=== PATIENT | female | born 1945 | race Caucasian/White ===

== ENCOUNTER 2017-01-10 06:30 | Day surgery (SDC) | payer MEDICARE, OTHER ==
[~2017-01-10] VITALS: Ht 172.7 cm; Wt 83.9 kg
[~2017-01-10 06:30] MED LIST: AZITHROMYCIN500 MG PO; CO Q-10100 MG PO; FISH OIL500 MG PO; FOLBIC TABLET1 EACH PO; GABAPENTIN300 MG PO; HYDROCODON-ACE1 EAC8 PO; KEFLEX500 MG PO; MAGNESIUM OXID400 MG PO; MILK THISTLE500 MG PO; NICODERM CQ1 EAC2 TD; NORCO 5-325 TA1 EACH PO; NTS1 EACH TD; OMEPRAZOLE20 MG PO; OMEPRAZOLE40 MG PO; PERCOCET 7.5-31 EACH PO; PREDNISONE20 MG PO; SUCRALFATE1 GM PO; TUMS ULTRA400 MG PO; VENTOLIN HFA18 GM INH; VITAMIN A10000 UNIT PO; VITAMIN A8000 UNIT PO; VITAMIN B122500 MCG PO; VITAMIN C500 M1 PO; VITAMIN D1000 UNIT PO; VITAMIN D400 UNIT PO; VITAMIN D5000 UNIT PO; ZITHROMAX250 MG PO
--- NOTE | 2017-01-15 01:42 | OR ---
[facility] [address], [place] [address] Signed PREOPERATIVE DIAGNOSES: 1. Lower abdominal pain. 2. History of ovarian carcinoma status post resection and chemotherapy. POSTOPERATIVE DIAGNOSES: 1. Sigmoid diverticulosis. 2. No evidence of neoplasm. PROCEDURE: Total colonoscopy. SURGEON: Amberly Issa MD. ANESTHESIA: Intravenous sedation, fentanyl 100 mcg, Versed at 5 mg. INDICATION: This 70-year-old white woman is a patient of Dr. Yoni Holley and well known to me from the past. Over the past 20 years, I have performed mastectomy twice for breast cancer and about 3 years ago abdominal hysterectomy and tumor debulking for ovarian carcinoma. She has undergone chemotherapy, which she tolerated well and currently has no evidence of disease. She is having lower abdominal pain recently, but no blood per rectum per se. She is admitted to undergo colonoscopy understanding the risks of bleeding, infection, and perforation. FINDINGS: The prep was good. She had diverticula of the sigmoid and left colon. There is no sign of polyps, cancer, stricture or other particular problem. PROCEDURE IN DETAIL: The patient was brought to the endoscopy suite, and placed in lateral decubitus position. Given intravenous sedation to the point of slurred speech and nystagmus. Digital rectal examination was normal. An Olympus video colon oscope was passed in the rectum and manipulated throughout the colon. She had diverticula of the sigmoid and left colon. The scope was advanced more fully and with abdominal wall stabilization, passage of the scope into the right colon could be ascertaine d . Actual intubation of the cecum was not forthcoming though visualization was noted to be normal. The scope was withdrawn from that point. Upon withdrawal of the scope. No other abnormality was noted except the diverticula seen in the left and sigmoid col on. The rectum was normal as well. The scope was removed and the patient was taken to recovery room in good condition. CONCLUDING DIAGNOSIS: Diverticular changes of the colon. Electronically Signed By: AMBERLY ISSA MD 01/15/17 0142 PATIENT NAME: TRISTON ALMONTE OPERATIVE REPORT DATE OF : 41 PHYSICIAN: AMBERLY ISSA MD REPORT #: [id number] REPORT IS CONFIDENTIAL AND NOT TO BE RELEASED WITHOUT AUTHORIZATION [facility] [address], [place] [address] Signed PLAN: Recommend high-fiber diet. She was noted on recent CT scan to have no evidence of ovarian cancer recurrence, but did have incisional hernia for which repair would be recommended. She will call us to help organize the scheduling for that. MD SARKIS Nelson/Carlos A /[id number] cc: MD Yoni Dickens Electronically Signed By: AMBERLY ISSA MD 01/15/17 0142 PATIENT NAME: TRISTON ALMONTE OPERATIVE REPORT DATE OF : 41 PHYSICIAN: AMBERLY ISSA MD REPORT #: [id number] REPORT IS CONFIDENTIAL AND NOT TO BE RELEASED WITHOUT AUTHORIZATION
== END 2017-01-10 08:45 | disposition home or self-care (01) ==
LOC: OPS 06:30 → DS 06:30 → OPS 06:45
PROVIDERS: Surgery
PROC: 0DJD8ZZ Inspection of Lower Intestinal Tract, Via Natural or Artificial Opening Endoscopic (ICD-10-PCS; principal; 2017-01-10 06:45)
DX: K57.30 Diverticulosis of large intestine without perforation or abscess without bleeding (principal); F17.210 Nicotine dependence, cigarettes, uncomplicated; Z85.43 Personal history of malignant neoplasm of ovary; Z85.3 Personal history of malignant neoplasm of breast; Z90.13 Acquired absence of bilateral breasts and nipples; Z90.710 Acquired absence of both cervix and uterus; Z90.49 Acquired absence of other specified parts of digestive tract; Z90.722 Acquired absence of ovaries, bilateral; Z98.890 Other specified postprocedural states
CPT/HCPCS: 99152; 99153; J2250; J3010; J7120

== ENCOUNTER 2017-05-26 18:15 | Emergency (ER) | payer MEDICARE, OTHER ==
[~2017-05-26] VITALS: Ht 172.7 cm; Wt 86.2 kg
[2017-05-26] MEDS ORDERED: MAGNESIUM CITR100 MG (18:32)
[2017-05-26] MEDS ORDERED: CEPHALEXIN500 MG PO (20:05)
--- NOTE | 2017-05-26 22:37 | EKG ---
[facility] [address] [facility] [place] [address] Signed Normal sinus rhythm Septal infarct , age undetermined Possible Lateral infarct , age undetermined Abnormal ECG No previous ECGs available Confirmed by YING SWENSON MD ([id number]) on 05/26/2017 10:37:00 PM Electronically Signed By: YING SWENSON MD 05/26/17 2237 PATIENT NAME: SUZYTRISTON VILLA Electrocardiogram DATE OF : 41 PHYSICIAN: YING SWENSON MD REPORT #: [id number] REPORT IS CONFIDENTIAL AND NOT TO BE RELEASED WITHOUT AUTHORIZATION
== END 2017-05-26 21:24 | disposition home or self-care (01) ==
LOC: ED 18:15
DX: R60.0 Localized edema (principal); N39.0 Urinary tract infection, site not specified; Z85.3 Personal history of malignant neoplasm of breast; Z85.038 Personal history of other malignant neoplasm of large intestine; Z85.43 Personal history of malignant neoplasm of ovary; K21.9 Gastro-esophageal reflux disease without esophagitis; Z90.10 Acquired absence of unspecified breast and nipple; Z90.710 Acquired absence of both cervix and uterus; Z87.891 Personal history of nicotine dependence; Z79.899 Other long term (current) drug therapy
CPT/HCPCS: 71010; 80053; 81001; 83880; 84484; 85025; 87088; 93005; 93010; 96374; 99284

== ENCOUNTER 2017-11-13 05:40 | Day surgery (SDC) | payer MEDICARE, OTHER ==
[~2017-11-13] VITALS: Ht 172.7 cm; Wt 90.7 kg
[~2017-11-13 05:40] MED LIST changes: +CARBIDOPA-LEVO1 EACH PO; +CEPHALEXIN500 MG PO; +CRANBERRY TABL1 EACH PO; +MAGNESIUM CITR100 MG; +MAGNESIUM250 MG PO
--- NOTE | 2017-11-13 07:17 | NUR ---
UP TO BR AND BACK TO BED. WARM BLANKET ON. IV PATENT.
--- NOTE | 2017-11-13 10:10 | NUR ---
11/13/17 1010 Dyana Tubbs 0972 PT ARRIVED REACTIVE, RESP EVEN AND UNLABORED. PT ABLE TO COUGH AND CLEAR SECRETION. 1000 O2 REMOVED, O2 SAT 100%. PT DROWSY AND TALKING. PT REORINETED TO PACU. VSS. 1005 O2 SAT DECREASED, PT ENCOURAGED TO DEEP BREATH, 2L NC PLACED ON PT. O2 INCREASED TO 98%.
[2017-11-13] MEDS ORDERED: IBUPROFEN600 MG PO (10:13)
[2017-11-13] MEDS ORDERED: OXYCODON-ACETA1 EAC2 PO (10:14)
[2017-11-13] MEDS ORDERED: MAPAP325 MG PO (10:14)
--- NOTE | 2017-11-13 10:53 | NUR ---
[id number]: PT ARRIVES TO DS RM 5 FROM RECOVERY. PT ALERT AND AWAKE ON ARRIVAL. PT HAS SOME "DISCOMFORT" IN ABD AREA. PT DENIES ANY NAUSEA. WARM BLANKET AND WATER PROVIDED ON ARRIVAL. PT REQUESTS COFFEE. PT BUSY USING TELEPHONE IN ROOM TO CALL SPOUSE. NO FURTHER C/O'S AT THIS TIME.
[2017-11-13] MEDS ORDERED: PERCOCET 7.5-31 EACH PO (11:28)
--- NOTE | 2017-11-13 11:49 | NUR ---
PT SITTING UPRIGHT IN BED WATCHING TV. RR EVEN AND UNLABORED. PT STATES SHE "FEELS COMFORTABLE" AND DOES NOT HAVE PAIN. PT TOLERATES PO WELL. NO C/O'S AT THIS TIME. CALL LIGHT AT PT LEFT SIDE.
--- NOTE | 2017-11-13 12:48 | NUR ---
PT SIGNIFICANT OTHER AT BEDSIDE. PT DENIES PAIN OR NAUSEA AT THIS TIME. PT PROVIDED ICED WATER AND REQUESTS FRUIT. CALL LIGHT REMAINS AT PT SIDE.
--- NOTE | 2017-11-13 13:45 | NUR ---
PT TOLERATES FRUIT WELL. PT PROVIDED WARM BLANKET AND MORE ICED WATER. S.O. SITTING AT BEDSIDE. CALL LIGHT REMAINS AT SIDE, NO C/O'S AT THIS TIME.
--- NOTE | 2017-11-13 14:42 | NUR ---
[id number]: PT UP TO BR WITH RN ASSIST. PT AMBULATES WELL AND VOIDS 500 MLS YELLOW URINE.
--- NOTE | 2017-11-13 15:27 | NUR ---
LE 1505: PT READY TO DC HOME, NOTED 10[address]ISSED[address] SPOKE WITH DR. ISSA, CHANGE TO ANCEF 2 GM IM TO BE GIVEN NOW. RHEA IN PHARMACY NOTIFIED. WILL CHANGE ORDER.
--- NOTE | 2017-11-13 16:34 | NUR ---
[id number]: DC CRITERIA MET. PT IMPLANTED PORT HEPARINIZED AND DEACCESSED. DC INSTRUCTIONS GIVEN IN PRESENCE OF PT AND SIG OTHER. ALL QUESTIONS ANSWERED AND PT VERBALIZES UNDERSTANDING OF DC INSTRUCTIONS. PAIN MED SCRIPT GIVEN TO PT. [id number]: [facility] NOTIFIED THREE DIFFERENT TIMES REGARDING IM INJECTION. PT WAITED IN DS FOR APPROX 1 HOUR FOR ABX. PT MARTELL EMPTIED OF 20 MLS RED BLOOD WHILE WAITING. DR. ISSA GAVE VERBAL ORDER TO CANCEL IM INJECTION DUE TO PT WAITING SO LONG. PT DC'S VIA WC WITH [employer] AND JEYSON GÓMEZ.
--- NOTE | 2017-11-13 16:41 | NUR ---
PT TO DC AT 1505 UNTIL MISSED MEDICATION WAS REALIZED. PT WAITED UNTIL 1600 ON IM ANCEF.
--- NOTE | 2017-11-13 17:52 | OR ---
[facility] [address], [place] [address] Signed DATE OF OPERATION: 11/13/2017 SURGEON: Amberly Issa MD PREOPERATIVE DIAGNOSES: 1. Incisional hernia in the region of umbilicus. 2. Obesity. 3. History of smoking (quit three months ago). 4. History of stage IV ovarian carcinoma with successful debulking and chemotherapy. 5. History of breast cancer. 6. History of left lung cancer. POSTOPERATIVE DIAGNOSES: 1. Incisional hernia, 7 cm defect. 2. 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 PROCEDURES PERFORMED: 1. Incisional hernia repair with implantation of Prolene mesh underlay technique. 2. Excision/biopsy of peritoneal nodules. 3. Lysis of small bowel adhesion. ANESTHESIA: General endotracheal and local 20 mL of 0.25% Marcaine with epinephrine. ANESTHESIOLOGIST: Olga Lidia Villafuerte CRNA. INDICATION: This 72-year-old white woman is a patient Dr. Maile Holley, well-known to me from the past. A number of years ago she had breast cancer. Subsequently, recurrent new breast cancer in the past few years, ovarian carcinoma requiring hysterectomy and debulking and omentectomy. Subsequent chemotherapy was administered. She was also noted to have a lung neoplasm, which was treated primarily with radiation therapy. She has remained in a disease-free state since that time. She has developed an incisional hernia in the region of the umbilicus in part related to her obesity and long-standing smoking history as well as probably impaired wound healing related to chemotherapy after her ovarian surgery operation. The hernia is uncomfortable for her and is located just cephalad to the umbilicus itself. She shows no sign of ascites or other particular problems. She has quit smoking now for three months, which is a remarkable feat in and out of itself. She was admitted at this time to undergo hernia repair. Understands the Electronically Signed By: AMBERLY ISSA MD 11/13/17 1752 PATIENT NAME: TRISTON ALMONTE OPERATIVE REPORT DATE OF : 41 REPORT #: [id number] PHYSICIAN: AMBERLY ISSA MD PCP: MAILE HOLLEY MD REPORT IS CONFIDENTIAL AND NOT TO BE RELEASED WITHOUT AUTHORIZATION [facility] [address], [place] [address] Signed risks of bleeding, infection, and recurrence. Notably, she remains obese at 200 pounds or so. FINDINGS: The fascial defect was 7 cm in length. The hernia sac was firm and rubbery. The properitoneal space was developed and the hernia sac was removed and additional nodules associated with remnants of hernia sac were excised as peritoneal biopsies as there appears to be possible persistence or recurrence of ovarian cancer, though that is not certain. There were interloop adhesions to some degree, none of them appearing to be malignant and these were taken down as well. By conclusion, the properitoneal space was well-developed and the peritoneum reapproximated allowing for implantation of Prolene mesh covering the fascial defect with a minimum of 4 cm on each edge. Prolene pledgets were used to additionally secure the sutures. Midline fascia cannot be brought fully together, it is noted. A drain was placed as well. DESCRIPTION OF PROCEDURE: The patient was brought to the operating room, given a general endotracheal anesthetic. Preoperative antibiotic Ancef was given. Sequential compression device stockings were used and heparin subcutaneously administered. The abdomen was prepared with chlorhexidine solution and draped sterilely. An incision was made in the previous midline incision cephalad to the umbilicus and taken that inferiorly just below the umbilicus. Dissection was carried through subcutaneous tissue using blunt and electrocautery dissection. Very obvious hernia sac was dissected free from the surrounding soft tissue including the overlying dermis of the umbilicus. The hernia sac was quite thickened, astorga, and somewhat rubbery in its consistency. It was freed from surrounding soft tissue with blunt dissection defining well the fascial edge. A plane was developed between the fascia and the hernia sac itself using electrocautery and blunt dissection. This was done circumferentially around the defect, which measured 7 cm in length and about 5 cm in width. Ultimately, the firmness and rubberiness of the hernia sac and some slightly nodular changes were noted and therefore, the hernia sac was opened and further inspection undertaken. There was no sign of ascites or carcinomatosis. Proper however, rubbery nodules were noted of the hernia sac and peritoneum. These were excised and passed as specimen for possible peritoneal tumor. There were interloop adhesions and these were taken down with sharp dissection freeing them entirely. The remnant of the hernia sac was further from the overlying fascia allowing for reapproximation with running #2-0 Vicryl suture. Thus, the peritoneum was secured over the intraabdominal viscera. A 6 x 6 inch piece of Prolene mesh was cut to an elliptical configuration. The center line marked with a marking pen. Implantation of Prolene mesh in the properitoneal space was undertaken with interrupted #0 Prolene sutures with Prolene mesh pledgets. Multiple such sutures were placed. Overlap of the fascial margin was at least 4 cm circumferentially. Multiple stitches Electronically Signed By: AMBERLY ISSA MD 11/13/17 1759 PATIENT NAME: TRISTON ALMONTE OPERATIVE REPORT DATE OF : 41 REPORT #: [id number] PHYSICIAN: AMBERLY ISSA MD PCP: MAILE HOLLEY MD REPORT IS CONFIDENTIAL AND NOT TO BE RELEASED WITHOUT AUTHORIZATION [address] [place] [address] Signed were placed in the edge as well to more fully secure the mesh. Through a separate stab incision, a 7 mm flat Hans drain was placed in the base of the wound. Shaina's layer was reapproximated with interrupted #2-0 Vicryl. The skin was closed with running subcuticular #3-0 Vicryl. Steri-Strips were applied as was as Mepilex silver sponge dressing and an OpSite. The patient was ultimately extubated and transferred to recovery room in good condition with an abdominal binder in place. Blood loss was estimated at 50 mL in total. Sponge, needle, and instruments counts were reported as correct x3. MD SARKIS Nelson/CLAIREL /[id number] cc: MD [place] MD Copies: MAILE HOLLEY MD, ROBERT C MD ~ Electronically Signed By: AMBERLY ISSA MD 11/13/17 1752 PATIENT NAME: TRISTON ALMONTE OPERATIVE REPORT DATE OF : 41 REPORT #: [id number] PHYSICIAN: AMBERLY ISSA MD PCP: MAILE HOLLEY MD REPORT IS CONFIDENTIAL AND NOT TO BE RELEASED WITHOUT AUTHORIZATION
== END 2017-11-13 16:00 | disposition home or self-care (01) ==
LOC: DS 05:40
PROVIDERS: Surgery
PROC: 0WUF0JZ Supplement Abdominal Wall with Synthetic Substitute, Open Approach (ICD-10-PCS; 2017-11-13)
PROC: 0WUF0JZ Supplement Abdominal Wall with Synthetic Substitute, Open Approach (ICD-10-PCS; principal; 2017-11-13 06:45)
DX: K43.2 Incisional hernia without obstruction or gangrene (principal); E66.9 Obesity, unspecified; K66.0 Peritoneal adhesions (postprocedural) (postinfection); F17.210 Nicotine dependence, cigarettes, uncomplicated; K59.09 Other constipation; Z79.899 Other long term (current) drug therapy; Z98.890 Other specified postprocedural states; Z68.28 Body mass index [BMI] 28.0-28.9, adult; Z85.43 Personal history of malignant neoplasm of ovary; Z85.118 Personal history of other malignant neoplasm of bronchus and lung; Z85.3 Personal history of malignant neoplasm of breast
CPT/HCPCS: 00830; 88302; 88305; 88341; 88342; C1781; J0131; J0690; J0735; J1100; J1644; J1885; J2250; J2405; J2704; J3475; J7120

== ENCOUNTER 2020-01-11 11:23 | Inpatient (IN) | payer MEDICARE, OTHER ==
[~2020-01-11] VITALS: Ht 172.7 cm; Wt 90.3 kg
[~2020-01-11 11:23] MED LIST changes: +B COMPLEX1 EACH PO; +IBUPROFEN600 MG PO; +MAPAP325 MG PO; +OXYCODON-ACETA1 EAC2 PO; -VITAMIN B122500 MCG PO
--- OUTSIDE RECORDS SUMMARY | 2020-01-11 11:26 | XMS ---
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 Dick has no Care Guidelines for this patient. Arlene VISIT COUNT (12 MO.) 1 MARTHA Velarde TOTAL 1 NOTE: Visits indicate total known visits. ED/UCC VISIT TRACKING (12 MO.) 01/11/2020 11:23 MARTHA Don OR TYPE: Emergency COMPLAINT: - [facility] INPATIENT VISIT TRACKING (12 MO.) No inpatient visits to display in this time frame [email or web address]
[2020-01-11] MEDS ORDERED: FLUOXETINE HCL20 MG PO (16:07)
--- NOTE | 2020-01-11 16:19 | NUR ---
Dilaudid 0.5mg ivp admin for reports of 8/10 left hip pain.
--- NOTE | 2020-01-11 16:30 | NUR ---
New admit to the floor. Pt arrived to unit a&ox4, respirations even and non labored. Vital signs stable, afebrile. No notable bruising to left hip. CMS intact to left lower leg. Oriented pt to room and call light. Bed alarm intact. Pt has no needs at this time.
--- NOTE | 2020-01-11 16:30 | NUR ---
Pt arrived to unit with harris in place.
--- NOTE | 2020-01-11 17:19 | NUR ---
NOTIFIED OF CONSULT ORDER BY AT THIS TIME.
--- NOTE | 2020-01-11 17:49 | NUR ---
MED REC COMPLETE
--- NOTE | 2020-01-11 17:52 | NUR ---
Dilaudid 1mg IVP admin for reports of 9/10 left hip pain.
--- NOTE | 2020-01-11 19:13 | NUR ---
RECEIVED REPORT FROM NBA BENÍTEZ. pt RESTING IN BED. CABAN DRAINING CONCENTRATED YELLOW URINE. IVF INFUSING. pt REPORTED THAT PAIN IS "OKAY" AT THIS TIME. WHITEBOARD UPDATED. CALL LIGHT IN HAND.
--- NOTE | 2020-01-11 22:00 | NUR ---
ASSESSMENT DONE. pt REPORTED PAIN, PRN GIVEN WITH SCHEDULED MED (SEE MAR). I&O AND VITALS RECORDED. NO FURTHER REQUESTS AT THIS TIME. CALL LIGHT WITHIN REACH.
--- NOTE | 2020-01-11 23:48 | NUR ---
ROUNDED ON pt. RESTING WITH EYES CLOSED, WOKE TO NOISE. NO REQUESTS AT THIS TIME. CALL LIGHT WITHIN REACH.
--- NOTE | 2020-01-12 02:05 | NUR ---
WOKE pt FOR ASSESSMENT AND VITALS. I&O RECORDED. pt REPORTED HAVING A DRY MOUTH, SWABS PROVIDED. PAIN 2/10 AT REST. NO CHANGES IN ASSESSMENT. NEW BAG OF IVF HUNG. CALL LIGHT WITHIN REACH.
--- NOTE | 2020-01-12 03:33 | NUR ---
CALL LIGHT ON. pt REQUESTED PRN PAIN MEDS FOR 8/10 PAIN. REPORTED THAT SHE WOULD LIKE ANOTHER LEVODOPA/CARBIDOPA FOR HER RESTLESS LEGS THE TWITCHING WAS CAUSING SEVERE PAIN IN HER LEFT LEG. BOTH GIVEN (SEE MAR). NO FURTHER REQUESTS AT THIS TIME. CALL LIGHT WITHIN REACH.
--- NOTE | 2020-01-12 06:38 | NUR ---
VITALS AND I&O RECORDED. pt WIPED DOWN FOR SURGERY. PRN PAIN MED GIVEN FOR 6/10 PAIN. NO FURTHER REQUESTS AT THIS TIME. CALL LIGHT IN HAND.
--- NOTE | 2020-01-12 07:42 | NUR ---
pt RESTED ON AND OFF DURING SHIFT. PAIN CONTROLLED WITH PRN IV MEDS X3. CABAN CONCENTRATED, AMPHIBIOUS OPERATIONS OFFICER AT END OF SHIFT. IVF INFUSING. DESAT WITH SLEEP, ON 2L O2 WHILE SLEEPING. WOULD LIKE HER DENTURES IN PRIOR TO SEEING SIGNIFICANT OTHER. USES CALL LIGHT APPROPRIATELY.
--- NOTE | 2020-01-12 09:32 | NUR ---
PATIENT GONE IN OR. WILL CHECK BACK LATER.
--- NOTE | 2020-01-12 11:45 | NUR ---
pt arrived back from surgery at this time. pt had a duramorph spinal. pt states that she has no pain. pt arrives to unit on 2l nc with an O2 sat of 97%. pt slightly drowsy but arousable at this time. pt has no complaints or concerns at this time.
--- NOTE | 2020-01-12 11:58 | NUR ---
01/12/20 1158 Diann Jimenez 1043 PT ARRIVED IN PACU AWAKE WITH OPA IN PLACE. 1045 OPA REMOVED. 1100 PELVIS XRAY DONE. CRYO CUFF PLACED ON L HIP PER DR ORDERS. 1105 OXYGEN REMOVED. SATS DROPPED TO 88% ON RA WITH COUGH, DEEP BREATHING. O2 AT 4L VIA NC PLACED. 1120 BILAT OZIEL HOES PLACED ON PT. OXYGEN DECREASED TO 2L WITH SATS 97%. 1145 TO ROOM 113. BED PLUGGED IN AND REPORT GIVEN TO RN.
--- NOTE | 2020-01-12 12:38 | NUR ---
PT DID ARRIVE FROM SURGERY WITH SHRUTI IN PLACE, CLEAN/DRY/INTACT. PT ALSO HAS A CYRO IS PLACE. SCDS PLACED AND CPOX IN PLACE WELL
--- NOTE | 2020-01-12 12:45 | NUR ---
IN PTS ROOM TO GIVE TXA. PT APPEARS TO BE RESTING COMFORTABLY IN BED. PT IS REGAINING FEELING IN HER LEGS AT THIS TIME AFTER HAVING A DURAMORPH SPINAL. PT ABLE TO WIGGLE TOES. PT REPORTS NO PAIN AT THIS TIME AND HAS NO OTHER CONCERNS CURRENTLY
--- NOTE | 2020-01-12 13:36 | NUR ---
WENT TO CHECK ON PT-TAKEN TO OR FOR SURGERY. WILL FOLLOW UPON RETURN
--- NOTE | 2020-01-12 14:05 | NUR ---
IN PTS ROOM TO DO THIRD POST-OP CHECK. PT RESTING SOUNDLY WITH RESPIRATIONS NOTED AND CPOX IN PLACE. VITALS WNL AT THIS TIME
--- NOTE | 2020-01-12 17:45 | NUR ---
THIS RN ATTEMPTED TWICE ON THE PTS RIGHT ARM FOR A NEW IV. THIS RN MISSED ON BOTH ATTEMPTS. SALAZAR RN AWARE
--- NOTE | 2020-01-12 19:20 | NUR ---
IN ROOM FOR REPORT, PT IS AWAKE IN BED. SHE DENIES NEEDS AT THIS TIME. FRESH ICE IS IN CRYO. CALL LIGHT IS CLOSE.
--- NOTE | 2020-01-12 21:12 | EKG ---
[facility] [address] [facility] [place], [place] [address] Signed Normal sinus rhythm with sinus arrhythmia Left axis deviation Abnormal ECG When compared with ECG of 11-NOV-2017 09:46, QRS axis shifted left Confirmed by RHEA BOTELLO DO ([id number]) on 01/12/2020 9:12:33 PM Electronically Signed By: RHEA BOTELLO DO 01/12/202111 PATIENT NAME: TRISTON ALMONTE Electrocardiogram DATE OF : 41 PHYSICIAN: RHEA BOTELLO DO REPORT #: [id number] REPORT IS CONFIDENTIAL AND NOT TO BE RELEASED WITHOUT AUTHORIZATION
--- NOTE | 2020-01-12 21:30 | NUR ---
IN ROOM TO ADMINISTER MEDICATIONS AND ASSESS PT. TOOK O2 DOWN TO 1 LNC AND PT DROPED TO 91% THEN PUT PT ON RA AND SHE DROPPED TO 88%. REPLACED O2 AT 2LNC. SHE DENIES SOB BUT HAS A PRODUCTIVE COUGH. DISCUSSED COUGHING AND DEEP BREATHING. SHRUTI IS CDI AND PT DENIES PAIN AT THIS TIME. CALL LIGHT IS CLOSE AND PT DENIES FURTHER NEEDS.
--- NOTE | 2020-01-12 23:00 | NUR ---
IN ROOM TO ADMINISTER IV ABX. PT DENIES FURTHER NEEDS AT THIS TIME. CALL LIGHT IS CLOSE.
--- NOTE | 2020-01-12 23:02 | NUR ---
VITALS AND I&OS DONE AND CHARTED. FILLED CRYO WITH FRESH ICE. FRESH ICE WATER GIVEN. BEDSIDE TABLE AND CALL LIGHT IN REACH. PT NEEDS NOTHING MORE AT THIS TIME.
--- NOTE | 2020-01-12 23:59 | NUR ---
PT IS AWAKE IN BED WATCHING TV, SHE DENIES NEEDS AT THIS TIME. CALL LIGHT IS CLOSE.
--- NOTE | 2020-01-13 01:30 | NUR ---
PT IS RESTING WITH EYES CLOSED, RR IS EVEN AND NONLABORED. CALL LIGHT IS CLOSE.
--- NOTE | 2020-01-13 02:27 | NUR ---
ADMINISTERED SCHEDULED TORADOL. VS & I&O'S TAKEN AND ENTERED. PT DENIES PAIN WHILE STILL AND REPORTS AN INCREASE TO 2/10 IF SHE MOVES LEFT LEG. PT HAS ACTIVE BT BUT IS NOT PASSING GAS YET. 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 SHRUTI IS CDI. WAS ABLE TO DECREASE PT'S O2 TO 1LNC. PT DENIES NEEDS AT THIS TIME, CRYOCUFF, SCDS AND AES ARE ON. CALL LIGHT IS CLOSE.
--- NOTE | 2020-01-13 03:15 | NUR ---
PT IS RESTING WITH EYES CLOSED, RR IS EVEN AND NONLABORED. CALL LIGHT IS CLOSE.
--- NOTE | 2020-01-13 06:26 | NUR ---
ADMINISTERED MORNING MEDS. ATTEMPTED TO START AN IV WITHOUT SUCESS. PT DENIES PAIN AT THIS TIME. CALL LIGHT IS CLOSE.
--- NOTE | 2020-01-13 07:28 | OR ---
[facility] [address] [place], [place] [address] Signed DATE OF OPERATION: 01/12/2020 SURGEON: Pita Holder MD PREOPERATIVE DIAGNOSIS: Left intertrochanteric hip fracture. POSTOPERATIVE DIAGNOSIS: Left intertrochanteric hip fracture. PROCEDURE PERFORMED: Open reduction and internal fixation of left hip. AUTOMOTIVE SALES SPECIALIST: DOUGLAS Duffy. ANESTHESIA: Spinal. BLOOD LOSS: 200 mL. IMPLANTS: Four-hole Synthes DHS 130-degree with 110 lag screw and four 4.5 screws. BRIEF HISTORY: Franko is a 74-year-old female, who suffered a ground level fall yesterday fracturing her hip. She was admitted to my service and cleared by the Medicine Service to proceed with surgery today. Risks and benefits of operative treatment were discussed with her and she elected to proceed. DESCRIPTION OF PROCEDURE: Once consent was obtained, she was taken to the operating room after adequate anesthesia. She was placed on operating room table and the right leg was flexed, abducted, and externally rotated. The left leg was placed in foot traction on the traction bed and Leadbetter was maneuver was performed. The leg was then prepped and draped in a standard sterile fashion. C-arm was brought in and reduction was found to be adequate. The standard lateral approach through a 6 inch incision was taken through skin and subcutaneous tissue. The IT band was split longitudinally. The vastus lateralis was then split and elevated off the lateral femur. The reduction was improved Electronically Signed By: PITA HOLDER MD 01/13/20 0728 PATIENT NAME: FRANKO ALMONTE OPERATIVE REPORT DATE OF : 41 REPORT #: [id number] PHYSICIAN: PITA HOLDER MD PCP: MAILE KAMARA MD REPORT IS CONFIDENTIAL AND NOT TO BE RELEASED WITHOUT AUTHORIZATION [facility] [address] [place], [place] [address] Signed by using a bone hook medially. We then placed the guidewire from the lateral femur across the femoral neck into the femoral head in a center-center position. The guidewire was measured to 110. A 105 screw was selected and the triple reamer was used to ream over the guidewire and then, the 105 mm lag screw was placed to its full depth. The four-hole DHS was then placed over this and impacted until it was well seated on the lateral femur. The four screws in the plate were then placed and checked using image intensifier. The compression screw was then placed and the wound was copiously irrigated with antibiotic solution. The fascia was closed in layers using #0 Stratafix, #1 Stratafix for the subcutaneous tissue and anne marie for the skin. A SHRUTI wound VAC dressing was placed and she was awakened and taken to the recovery room in satisfactory condition. All sponge, needle, and instrument counts were correct. Pita Holder MD BA/PHILLIP /[id number] Copies: ~ Electronically Signed By: PITA HOLDER MD 01/13/20 0728 PATIENT NAME: FRANKO ALMONTE OPERATIVE REPORT DATE OF : 41 REPORT #: [id number] PHYSICIAN: PITA HOLDER MD PCP: MAILE KAMARA MD REPORT IS CONFIDENTIAL AND NOT TO BE RELEASED WITHOUT AUTHORIZATION
--- NOTE | 2020-01-13 07:48 | NUR ---
0713: Report received from Christal BENÍTEZ. Pt resting in her bed and she denies any pain or other problems or needs at this time. Call suarez within reach.
--- NOTE | 2020-01-13 08:16 | NUR ---
PT SITTING ON THE BEDPAN ATTEMPTING TO HAVE A BM AT THIS TIME. SCD'S, OZIEL, CRYO CUFF, SHRUTI ALL ON AND WORKING WELL. DRESSING CDI. PT DENIES ANY PAIN AND IS HAVING HER BK AND SPEAKING WITH HER VISITOR AND NOW WORKING WITH OT. SEE ASSESSMENT.
--- NOTE | 2020-01-13 09:26 | NUR ---
OT, SOCO, ASKED IF I COULD CHAT WITH PATIENT ABOUT HIGH FIBER FOODS WHILE SHE IS HERE SINCE SHE EATS HIGHER FIBER FOODS AT HIME TO PREVENT CONSTIPATION. STOPPED IN HER ROOM, HER IS VISITING. PATIENT ORDERED WHEAT TOAST AND 2 ORANGE SLICES FOR BREAKFAST AND ONLY AT 1/2 OF A SLICE OF TOAST AND NO ORANGES. STATES SHE DOESN'T HAVE AN APPETITE. SHE DID DRINK ALL OF HER COFFEE. I MENTIONED THAT SHE CAN ORDER HER OWN FOOD AND MENTIONED FOODS ON OUR MENU THAT PROVIDE A GOOD SOURCE OF FIBER SUCH RAISIN BRAN, PRUNES, STEAMED BROCCOLI, PEAS, OATMEAL, WHOLE WHEAT BREAD AND FRESH FRUIT. SHE PREFERS FIGS AT HOME, SO SHE DOESN'T SOUND LIKE SHE WILL ORDER PRUNES. SHE MAY ORDER RAISIN BRAN FOR BREAKFAST BUT NEEDS TO HAVE SOME PROTEIN WITH IT. I MENTIONED SHE CAN HAVE AN EGG OR COTTAGE CHEESE OR SAUSAGE GALINA. PATIENT UNDERSTANDS. SHE HAS NO MORE QUESTIONS. CONTINUE REGULAR DIET. WILL REMAIN AVAILABLE IF NEEDED.
--- NOTE | 2020-01-13 10:28 | NUR ---
Dr Holder called and notified of the pt's urine output and her vital signs. He states he would like to pt to increase her PO fluid intake which she has already been instructed to do. Dr Holder states he is ok with her urine output if her BP remains stable which it is at this time.
--- NOTE | 2020-01-13 10:30 | NUR ---
SPOKE WITH PATIENT AND SIG OTHER IN ROOM. THEY LIVE TOGETHER IN HOME WITH 5 STEPS/RAIL. SHE HAS A CANE. SHE UNDERSTANDS SHE WILL NEED A FWW. SHE IS OK WITH GETTING ONE THROUGH HER INSURANCE. SHE WAS PLANNING ON GETTING ONE WITH A SEAT AT [facility] BUT I EXPLAINED THAT DR JEFFRIES USUALLY DOES NOT WANT THEM TO USE THAT KIND AFTER SURGERY. THEY HAVE A WALK-IN SHOWER WITH [employer] TO USE AND IT HAS A HAND HELD SHOWER HEAD. THEY HAVE A TALL TOILET AND WE DISCUSSED THEY STILL MAY WANT TO CHECK AT [facility] FOR A TOILET RISER AND GRAB BARS. PATIENT IS NORMALLY VERY ACTIVE AND FEELS SHE WILL DO WELL WITH THERAPY. THEY FEEL SHE CAN PROBABLY DO THERAPY AT [facility]. THEY HAVE PETS, DISCUSSED FOR HER TO BE CAREFUL TO NOT TRIP ON PETS OR HAVE THROW RUGS ABOUT. QUESTIONS ANSWERED. CASE MANAGEMENT WILL CONTINUE TO FOLLOW.
--- NOTE | 2020-01-13 10:30 | NUR ---
Pt resting in her bed and she continues to deny any pain.
--- NOTE | 2020-01-13 11:05 | NUR ---
SAT NOW 100%, O2 TURNED OFF. PULSE OX REMAINS IN PLACE.
--- NOTE | 2020-01-13 12:14 | PATH ---
[facility] [address] [facility] [place], [place] [address] Signed ORDERING PHYSICIAN: Easton Holder MD PATIENT NAME: TRISTON ALMONTE GENDER: Renée : 1945 SPECIMEN(S): No Source Given MOLECULAR PATHOLOGY RESULTS: SARS-CoV-2 Not Detected ADDITIONAL NOTES.: The [place] Fusion SARS-CoV-2 Assay is a multiplex real-time PCR (RT-PCR) in vitro diagnostic test intended for the qualitative detection of RNA from SARS-CoV-2 from individuals who meet COVID-19 clinical and/or epidemiological criteria. In general, SARS-CoV-2 RNA can be detected during the acute phase of infection. Positive results indicate the presence of SARS-CoV-2 RNA. Clinical correlation with patient history and other diagnostic information is necessary to determine patient infection status. Positive results do not rule out bacterial infection or co-infection with other viruses. Negative results do not preclude SARS-CoV-2 infection and should not be used as the sole basis for patient management decisions. Negative results must be combined with other clinical observations, patient history, and epidemiological information. The [place] Fusion SARS-CoV-2 Assay is not yet approved or cleared by the [place] FDA. When there are no FDA-approved or cleared tests available, and other criteria are met, FDA can make tests available under an emergency access mechanism called an Emergency Use Authorization (EUA). The EUA for this test is supported by the [place] of Health and Human Service's (HHS's) declaration that circumstances exist to justify the emergency use of in vitro diagnostics for the detection and/or diagnosis of the virus that causes COVID-19. This EUA will remain in effect for the duration of the COVID-19 declaration justifying emergency of IVDs, unless it is terminated or revoked by FDA, after which the test may no longer be used. The [place] Fusion SARS-CoV-2 Assay is for use only under EUA in US laboratories certified under the Clinical Laboratory Improvement Amendments of 1988 (CLIA) to perform high complexity tests. [facility] is certified under CLIA to perform high complexity PATIENT NAME: TRISTON ALMONTE PATHOLOGY DATE OF : 41 REPORT #: [id number] PHYSICIAN: ELBERT CARRILLO PCP: MAILE KAMARA MD REPORT IS CONFIDENTIAL AND NOT TO BE RELEASED WITHOUT AUTHORIZATION [facility] [address] [place] [id number] Signed clinical laboratory testing. PERFORMING LABORATORY.: Molecular testing was performed by [facility] [id number] [place], [place] [address] [address] (Contract Programmer: Christophe Parks D.O.; CLIA#: [id number]) Diagnostician: System Interface Pathologist Electronically Signed 01/13/2020 Copies: ~ PATIENT NAME: TRISTON ALMONTE PATHOLOGY DATE OF : 41 REPORT #: [id number] PHYSICIAN: ELBERT CARRILLO PCP: MAILE KAMARA MD REPORT IS CONFIDENTIAL AND NOT TO BE RELEASED WITHOUT AUTHORIZATION
--- NOTE | 2020-01-13 12:43 | NUR ---
PT CONTINUES TO DENY ANY PAIN. SHE IS TAKING IN A GOOD AMOUNT OF PO FLUID AND SHE NOW HAS ABOUT 150 ML OF DARK COLORED URINE WHICH IS AN IMPROVMENT IN AMOUNT. WILL CONTINUE TO MONITOR. SAT IS 93% ON ROOM AIR AT THIS TIME. HER SPOUSE REMAINS AT THE BEDSIDE.
--- NOTE | 2020-01-13 13:55 | NUR ---
PT RESTING IN HER BED WATCHING TV. SHE DENIES ANY PAIN. SHRUTI DRESSING CDI AND FLASHING GREEN. CRYO CUFF AND SCD'S ON AND RUNNING. OZIEL HOSE ON AND CALL GROVES WITHIN REACH. PT CONTINUES TO INCREASE PO INTACT. CABAN DRAINING, SEE I&O'S.
--- NOTE | 2020-01-13 14:30 | NUR ---
ASSUMED CARE OF PT AT THIS TIME, RECIEVED REPORT FROM ОЛЕГ.
--- NOTE | 2020-01-13 15:13 | NUR ---
DINNER ORDER CALLED TO KITCHEN, CONT. TAKING PO FLUIDS WELL, DENIES ANY PAIN AT THIS TIME. CALL LIGHT IN EASY REACH.
--- NOTE | 2020-01-13 16:51 | NUR ---
PT WORKED WITH PHYSICAL THERAPY, REQUESTING PAIN MEDICATION, ASSISTED TO BED AND POSITIONED FOR COMFORT, HYDROCODONE GIVEN, AT BEDSIDE VISITING.
--- NOTE | 2020-01-13 17:38 | NUR ---
PT REPORTS PAIN 2/10 NOW, ATE 100% OF DINNER, WATCHING TV PROGRAM WITH IN ROOM, DENIES ANY NEEDS.
--- NOTE | 2020-01-13 21:15 | NUR ---
VITALS AND I&OS DONE AND CHARTED. FILLED CRYO WITH FRESH ICE. BEDSIDE TABLE AND CALL LIGHT IN REACH. PT NEEDS NOTHING MORE AT THIS TIME.
--- NOTE | 2020-01-14 | NUR ---
PATIENT RESTING QUIETLY, WITH EQUAL AND REGULAR RESPIRATION, IN HIGH FOWLERS POSITION, TURNED SLIGHTLY TO THE RIGHT SIDE. CALL LIGHT IN REACH AND EYES CLOSED, CALL LIGHT IN REACH.
--- NOTE | 2020-01-14 02:36 | NUR ---
PATIENT RESTING QUIETLY IN SEMI-FOWLERS POSITION. CALL LIGHT IN REACH EYES CLOSED, RESPIRATIONS SHALLOW AND EVEN.
--- NOTE | 2020-01-14 03:09 | NUR ---
PATIENT JUST ASKED ME TO GET A HOLD OF HER GRANDSON WILLY ALMONTE WAS WORKING TONIGHT BECAUSE SHE WANTS TO TALK WITH HIM, SHE DOES NOT THINK HE KNOWS SHE IS IN THE HOSPITAL AND HE IS SUPPOSED TO MEET HER AT HER HOUSE TOMORROW. HAVE CALLED ES TO HAVE HIM COME TO MED/SURG. ADMITTING WAS INFORMED OF THIS REQUEST WELL HUSEYIN MY CHARGE NURSE.
--- NOTE | 2020-01-14 05:33 | NUR ---
PATIENT SLEPT WELL FIRST 2/3 OF THE SHIFT BUT THEN WOKE UP AND WANTED TO SEE HER FAMILY MEMBER CHANG ALMONTE WHO WORKS HERE AT NIGHT AND THEY VISITED. TYLENOL AND TORADOL CONTROLLED PAIN UNTIL A FEW MINUTES AGO WHEN THE LEFT HIP PAIN GOT UP TO 8/10 AND 2 NORCO GIVEN. PATIENT AWAKE WATCHING TV AT THIS TIME. SHRUTI WORKING AND LEFT HIP DRESSING CDI, SCD'S ON. CALL LIGHT IN REACH.
--- NOTE | 2020-01-14 07:23 | NUR ---
0700: Report received from Luis Angel BENÍTEZ. Pt resting in her bed and she denies any pain or new problems. Scant shadowing noted on the jimbo which remains intact and flashing green. Cryo cuff remains on and running. Call suaerz within reach.
--- NOTE | 2020-01-14 07:50 | NUR ---
Pt resting in her bed having just used her IS. She states she has been doing her exercises given to her by physical therapy. She however declines to get up to the chair at this time and states she will do so with therapy this am. Dressing has a scant amount of shadowing on the SHRUTI which is working well and remains intact. Cryo cuff refilled with fresh ice at this time. Scd's on and running, emelyn hose in place. Heel protectors placed. Pt denies any pain or problems. See assessment.
--- NOTE | 2020-01-14 08:03 | NUR ---
FILLED CRYO. GOT PATIENT MORE WATER. HEEL PROTECTORS. PATIENT SAID SHE WOULD LIKE TO TAKE A SHOWER TODAY IF SHE CAN. PATIENT DIDN'T WANT ANY BREAKFAST. BUT SHE GOT TWO CUPS OF COFFEE. PATIENT IS LAYING IN BED WATCHING TV.
--- NOTE | 2020-01-14 09:09 | NUR ---
Physical therapy in the room working with the pt at this time.
--- NOTE | 2020-01-14 10:01 | NUR ---
Pt just finished working with physical therapy and is now sitting in her chair. She states her pain level is now a 5 and she was medicated as ordered. She has an ice bag in place and her feet are elevated and emelyn hose in place. Roque dressing remains unchanged from this am and continues flashing green. Horner draining clear yellow of a good amount. Pt while was up used the bathroom and had a med sized formed stool. Pt denies other problems now and her call suarez remains within reach.
--- NOTE | 2020-01-14 11:49 | NUR ---
Siri dc'd at this time, pt tolerated it well.
--- NOTE | 2020-01-14 11:51 | NUR ---
PT RESTING IN HER CHAIR EATING HER LUNCH WITH HER CALL GROVES WITHIN REACH AND NO COMPLAINTS AT THIS TIME.
--- NOTE | 2020-01-14 12:54 | NUR ---
PT STATES SHE IS DOING WELL WITH NO NEW PROBLMES AT THIS TIME. SHRUTI HAS A SMALL AMOUNT OF SHADOWING IN THE LEFT HIP AND THE DRESSING REMAINS INTACT WITH NO S/S OF INFECTION NOTED ON THE DRESSING EDGE. PT ASSISTED BACK TO BED SHE STATES SHE WANTS TO TAKE A NAP. 2 PERSON ASSIST WITH THE USE OF THE FWW AND GAIT BELT, PT WAS A BIT UNSTEADY BUT TOLERATED THE MOVE WELL. SHRUTI FLASHING GREEN, CRYO CUFF ON AND FULL OF ICE WATER, SCDS AND OZIEL HOSE ON. CALL GROVES WITHIN REACH. SEE ASSESSMENT.
--- NOTE | 2020-01-14 13:26 | NUR ---
Pt states she is having 5/10 neuropathy pain in her feet which is chronic. Pt medicated with scheduled Toradol, see emar.
--- NOTE | 2020-01-14 14:07 | NUR ---
Pt called and requested help to the bathroom. Pt tolerated the movement well and states her pain is alright at this time. Pt voided 250 ml of clear yellow urine. This was her first void post harris dc. Pt assisted back to bed per her request. Scd's and cryo replaced, call suarez within reach.
--- NOTE | 2020-01-14 15:29 | NUR ---
Pt just finished working with physical therapy and states her pain is now an 8 and is cramping. Pt medicated see nichol. Roque dressing remains unchanged.
--- NOTE | 2020-01-14 15:50 | NUR ---
RE-FILLED PATIENT'S CRYO. THIS MORNING SHE WAS SITTING UP IN HER CHAIR AFTER WORKING WITH PHYSICAL THERAPY.
--- NOTE | 2020-01-14 17:05 | NUR ---
Pt denies any pain or problems at this time.
--- NOTE | 2020-01-14 17:59 | NUR ---
Pt resting in her bed visiting with her SO and denies any pain or problems at this time.
--- NOTE | 2020-01-14 18:01 | NUR ---
Pt has been up working with physical therapy several times today as well as having several trips to the bathroom. She had a med sized stool and has had good urine output following the removal of her harris cath this am. Roque has been working well with a small amount of shadowing noted. Cap refill and pulse remain good. Cryo cuff, scds, teds, heep protectors are all on and functioning well. Pt had an increase in pain today as she was moving more but had good results with the ordered pain medications.
--- NOTE | 2020-01-14 18:34 | NUR ---
Pt assisted to the bathroom with a 2 person assist and the use of the gait belt and fww. She did stumble and was steadied by staff. Pt continues to requires many verbal commands as she continues to attempt to sit down without getting into a good position. Once finished using the restroom the pt returned to her chair. Her feet are elevated and her call suarez is within reach.
--- NOTE | 2020-01-14 19:56 | NUR ---
PATIENT VISITING IN HER ROOM WITH FAMILY. CALL LIGHT IN REACH.
--- NOTE | 2020-01-14 22:00 | NUR ---
PATIENT RESTING QUIETLY, EYES CLOSED, RESPIRATIONS SHALLOW, BUT EVEN, NO SIGNS OF DISCMFORT. CALL LIGHT IN REACH.
--- NOTE | 2020-01-14 22:33 | NUR ---
AIR DEFENSE CONTROL OFFICER ROUNDING NOTE. PT RESTING IN BED WATCHING TV. STATES THAT SHE HAS HAD A BUS DAY, THINKS SHE WILL SLEEP WELL TONIGHT. DENIES NEEDS. CALL LIGHT IN REACH. WHITEBOARD UPDATED.
--- NOTE | 2020-01-14 23:16 | NUR ---
PATIENT CONTINUES RESTING , SAME PREVIOUS NOTE, NO CHANGE IN STATUS. CALL LIGHT IN REACH.
--- NOTE | 2020-01-15 00:46 | NUR ---
PATIENT RESTING IN SEMI-FOWLERS POSITION, SHALLOW AND REGULAR RESPIRATIONS, EYE CLOSED, CALL LIGHT IN REACH.
--- NOTE | 2020-01-15 01:48 | NUR ---
PATIENT HAVING 8/10 PAIN IN HER FEET, 2AM TORADOL GIVEN AND 2 NORCO. PATIENT SAID SHE DIDN'T NEED ANYTHING ELSE AT THIS TIME. CALL LIGHT IN REACH.
--- NOTE | 2020-01-15 03:00 | NUR ---
PATIENT RESTING QUIETLY, EYES CLOSED WITH EVEN , BUT SHALLOW RESPIRATIONS, NO SIGNS OF DISCOMFORT, CALL LIGHT IN REACH.
--- NOTE | 2020-01-15 04:45 | NUR ---
PATIENT CALLED FOR ASSISTANCE, AMBULATED TO BATHROOM TO VOID AND BACK TO BED. PATIENT RESTING IN BED, CALL LIGHT IN REACH, SCDS ON, CRYO REFILLED, FRESH ICE WATER AT BEDSIDE. NO FURTHER NEEDS AT THIS TIME. RN AT BEDSIDE.
--- NOTE | 2020-01-15 04:51 | NUR ---
PATIENT HAS SLEPT ON AND OFF THROUGH THE NIGHT, UP MULTIPLE TIMES 2PA WITH FWW. PATIENT CONTINUES TO HAVE TEDS, SCD'S, HEEL PROTECTORS. THE IV FLUSHES GOOD THAT HAD TO BE CHANGED OUT DUE TO THE LAC IV LEAKING. PATIENT COMFORTABLE AT THIS TIME AND TRYING TO GET MORE SLEEP. CALL LIGHT IN REACH, GOOD URINE OUTPUT.
--- NOTE | 2020-01-15 07:15 | NUR ---
BEDSIDE HANDOFF REPORT RECEIVED FROM NUT GRINDER RN. PT RETURNING TO BED FROM BATHROOM WITH STAFF PHYSICAL THERAPY ASSISTANT, 2PA. PT COMPLAINT OF PAIN, REQUESTING PAIN MEDICATION. DUE TO DAILY TYLENOL LIMIT PT ONLY ABLE TO RECEIVE 1 TAB NORCO, DISCUSSED WITH PT AND WILL DISCUSS WITH PROVIDER THIS AM. PT DENIES OTHER NEEDS AT THIS TIME.
--- NOTE | 2020-01-15 08:00 | NUR ---
PT RESTING IN BED. PT ON ROOM AIR, LUNG SOUNDS CLEAR, DENIES SOB. BOWEL TONES ACTIVE, PT DENIES NAUSEA, TOLERATING REGULAR DIET. PT REPORT OF NEUROPATHY IN BLE, AT BASELINE, CMS OTHERWISE INTACT, WITHOUT EDEMA. SCDS AND OZIEL HOSE IN PLACE, CRYOCUFF PRESENT TO LEFT HIP. LEFT HIP SHRUTI DRESSING FLASHING GREEN, SCANT AMOUNT OF OLD DRAINAGE. DISCUSSED PLAN OF CARE FOR THE DAY, PT WORRIED ABOUT GOING HOME AND ACTIVITY, PT TO WORK WITH P.T. MORNING MEDICATIONS ADMINISTERED. PT DENIES OTHER NEEDS AT THIS TIME.
--- NOTE | 2020-01-15 10:50 | NUR ---
PT RATING PAIN 7/10 AFTER WORKING WITH P.T., GIVEN 2 TABS NORCO PER ORDER. DISCUSSED TYLENOL LIMIT AND CONCERN OF PAIN CONTROL WITH SABRA MAI TO CHANGES TO MEDICATION.
--- NOTE | 2020-01-15 12:30 | NUR ---
PT SITTING IN CHAIR, VISITING WITH . PT STATES PAIN IS TOLERABLE AT THIS TIME. PT ON ROOM AIR. CMS INTACT, NEUROPATHY AT BASELINE. DRESSING TO LEFT HIP INTACT, SHRUTI FLASHING GREEN. PT ASSISTED TO BED. PT STATES THEY ARE GETTING A COMMODE FROM A FRIEND, UPDATED THAT IN HOME MEDICAL WILL BE DELIVERYING A WALKER. PT DENIES OTHER NEEDS AT THIS TIME.
--- NOTE | 2020-01-15 14:50 | NUR ---
PT RESTING IN BED. PT COMPLAINT OF RESTLESS LEGS, REQUESTIGN SINEMENT, GIVEN. PT HIP PAIN 3/10 AT REST, 6/10 WITH MOVEMENT, OXYCODONE GIVEN. PT DENIES OTHER NEEDS AT THIS TIME.
--- NOTE | 2020-01-15 17:42 | NUR ---
PT TOLERATED CHANGE IN PAIN MEDICATION, PAIN IS WELL CONTROLLED. PT WORKED WITH P.T., WAS ABLE TO DO STAIRS. FWW DELIEVERD BY IN HOME MEDICAL. PT ON ROOM AIR, LUNG SOUNDS CLEAR. LEFT HIP DRESSING INTACT, SCANT DRAINAGE UNCHANGED. PT RECEIVED SINEMENT X1 FOR RESTLESS LEGS. IV SALINE LOCKED. PT HAD BM TODAY, HOLD BOWEL MEDS. PLAN FOR DC TOMORROW.
--- NOTE | 2020-01-15 19:26 | NUR ---
PATIENT'S FAMILY MEMBER CAME IN TO SEE HER.
--- NOTE | 2020-01-15 20:07 | NUR ---
PRODUCT BLENDING SUPERVISOR ROUNDING NOTE. PT SITTING UP IN CHAIR VISITING WITH HER . PT STATES THAT SHE IS READY FOR BED, PT UP TO BATHROOM WITH 2PA AND FWW. PT ASSISTED TO BED. REPORTS PAIN 8/10 TO L HIP. PRN OXYCODONE ADMINISTERED, PRN SINEMET ADMINISTERED X 2 TABS, AND SCHEDULED TORADOL ADMINISTERED. PT ICE WATER REFILLED. PT DENIES FURTHER NEEDS AT THIS TIME. CALL LIGHT IN REACH. REMAINS AT BEDSIDE.
--- NOTE | 2020-01-15 22:10 | NUR ---
PATIENT HAVING NO PAIN AT THIS TIME AND WAS ASLEEP WHEN I CAME IN. PATIENT SAYS SHE IS FINDING IT EASIER TO SLEEP USING AN EYE MASK. PATIENT HAD NO OTHER NEEDS. CALL LIGHT IN REACH.
--- NOTE | 2020-01-15 23:58 | NUR ---
PATIENT CALLED TO USE THE BATHROOM. 1 PA USING WALKER. PATIENT IS BACK IN BED. SCD'S AND CRYO CUFF ARE BACK ON.
--- NOTE | 2020-01-16 02:27 | NUR ---
2AM MEDS WERE GIVEN AND 1 SINEMET AND 1 OXYCODONE FOR 8/10 BILAT LOWER EXTREMITY PAIN. REFILLED PATIENT'S WATER AND SHE IS GOING TO TRY AND GO BACK TO SLEEP. CALL LIGHT IN REACH.
--- NOTE | 2020-01-16 04:32 | NUR ---
PATIENT HAS SLEPT ON AND OFF THROUGH THE NIGHT, HAD OXYCODONE A COUPLE OF TIMES FOR HIP AND LEG PAIN WITH GOOD RESULTS. PATIENT HAS BEENGETTING UP TO THE BATHROOM WITH 1PA AND FWW AND FEELS SHE IS READY TO GO HOME TODAY. IV FLUSHES WELL AND PATIENT HAS NO NEEDS AT THIS TIME.
--- NOTE | 2020-01-16 07:29 | NUR ---
0715: Report received from Luis Angel BENÍTEZ. Pt resting in her bed with her call suarez within reach. She states she slept better last night and is feeling good about going home today.
--- NOTE | 2020-01-16 07:57 | NUR ---
PT RESTING IN HER BED WITH SCD'S, OZIEL HOSE, CRYO CUFF AND SHRUTI ALL ON AND WORKING WELL. SHRUTI HAS A SMALL AMOUNT OF OLD DRY DRAINAGE AND REMAINS INTACT AND NO NOTED PROBLEMS. PT DENIES ANY PAIN AT THIS TIME AND STATES SHE FEELS READY FOR DISCHARGE TODAY. GOOD PEDAL PULSES NOTED AND CAP REFILL. CALL GROVES REMAINS WITHIN REACH. SEE ASSESSMENT.
--- NOTE | 2020-01-16 09:54 | NUR ---
PT RESTING IN HER CHAIR WITH HER LEGS ELEVATED AND HER CRYO CUFF IN PLACE. SHE DENIES ANY PAIN AND ONLY STATES THAT SHE IS A LITTLE COLD. PT GIVEN A BLANKLET AND DENIES ANY OTHER NEEDS AT THIS TIME.
[2020-01-16] MEDS ORDERED: ASPIRIN EC325 MG PO (10:11)
[2020-01-16] MEDS ORDERED: OXYCODONE HCL5 MG PO (10:12)
[2020-01-16] MEDS ORDERED: ACETAMINOPHEN500 MG PO (10:13)
[2020-01-16] MEDS ORDERED: GABAPENTIN300 MG PO (10:13)
[2020-01-16] MEDS ORDERED: SENNA LAX8.6 MG PO (10:15)
[2020-01-16] MEDS ORDERED: ONDANSETRON HCL4 MG PO (10:17)
[2020-01-16] MEDS ORDERED: POLYETHYLENE GL17 GM PO (10:17)
--- NOTE | 2020-01-16 10:58 | NUR ---
DC INSTRUCTIONS GIVEN TO INCLUDE HER MEDICATION SCRIPT. SHE STATES GOOD UNDERSTANDING OF HER INSTRUCTIONS. IV SITE DC'D WITH THE TIP INTACT. PT STATES THAT SHE WOULD LIKE TO LEAVE AFTER SHE EATS LUNCH. PT NOW GETTING READY FOR DISCHARGE. RX NOTIFIED OF THE DISCHARGE ORDER AND THEY ARE PREPAIRING SOME MEDICATION FOR DISCHARGE TO COVER HER UNTIL HER RX IS OPEN.
== END 2020-01-16 11:45 | disposition home health service (06) | DRG 482 ==
LOC: ED 11:23 → MS 15:14
PROVIDERS: ADMIT Specialist
PROC: 0QS704Z Reposition Left Upper Femur with Internal Fixation Device, Open Approach (ICD-10-PCS; principal; 2020-01-12 08:15)
DX: S72.142A Displaced intertrochanteric fracture of left femur, initial encounter for closed fracture (principal); Z20.828 Contact with and (suspected) exposure to other viral communicable diseases; G25.81 Restless legs syndrome; F39 Unspecified mood [affective] disorder; I25.10 Atherosclerotic heart disease of native coronary artery without angina pectoris; I10 Essential (primary) hypertension; G62.9 Polyneuropathy, unspecified; W01.0XXA Fall on same level from slipping, tripping and stumbling without subsequent striking against object, initial encounter; Z87.891 Personal history of nicotine dependence; Z85.3 Personal history of malignant neoplasm of breast; Z85.43 Personal history of malignant neoplasm of ovary; Z85.118 Personal history of other malignant neoplasm of bronchus and lung; Z79.899 Other long term (current) drug therapy; Z79.891 Long term (current) use of opiate analgesic
CPT/HCPCS: 01230; 51702; 71045; 72170; 73502; 80053; 81001; 85025; 85610; 93005; 93010; 97110; 97116; 97162; 97530; 99285-25; A9270; C1713; C9803; J0690; J1100; J1170; J1885; J2001; J2250; J2274; J2405; J2704; J2765; J3010; J7040; J7121

== ENCOUNTER 2020-05-05 09:20 | Day surgery (SDC) | payer MEDICARE, OTHER ==
[~2020-05-05 09:20] MED LIST changes: +ACETAMINOPHEN500 MG PO; +ASPIRIN EC325 MG PO; +FLUOXETINE HCL20 MG PO; +ONDANSETRON HCL4 MG PO; +OXYCODONE HCL5 MG PO; +POLYETHYLENE GL17 GM PO; +SENNA LAX8.6 MG PO
[2020-05-05] MEDS ORDERED: NORCO 5-325 TA1 EACH PO (09:48)
--- NOTE | 2020-05-05 11:15 | NUR ---
05/05/20 1115 Sheets,Dyana 1107 PT ARRIVED TO PAUC AND REACTIVE TO TACTIEL STIMULI AND RIGHT BACK TO SLEEP. VSS. PT PASSING GAS. O2 SAT LOW 90S AND RN ENCOURAGES DEEP BREATHING OFF AND ON.
--- NOTE | 2020-05-09 14:42 | PATH ---
[facility] [address] [place], [place] [address] Signed SPECIMEN(S): A COLON AT 20 CM SPECIMEN SOURCE: A. COLON AT 20 CM CLINICAL HISTORY: Colonoscopy. History of diverticulosis and polyps. Postop: Neoplasm at 20 cm. MICROSCOPIC DESCRIPTION: Histologic sections of all submitted blocks are examined by light microscopy. These findings, together with the gross examination, support the pathologic diagnosis. 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 - Background non-neoplastic colonic mucosa. - See comment. 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 Sections demonstrate fragments of a poorly differentiated carcinoma growing in papillary arrangements and in sheets within fibrous desmoplastic tissue. The tumor cells have occasional prominent nucleoli and mitoses are frequent. Background fragments of non-neoplastic colonic mucosa are present. Immunohistochemical stains (with appropriately staining controls) were performed. The tumor cells are positive for CK7, PAX8, WT-1, and ER with rare, weak positivity for p53. CK20 and CDX2 are negative in the tumor cells and highlight the background non-neoplastic colonic epithelium. 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 Absence of diffuse p53 positivity can be seen in a subset of high grade serous carcinomas. As part of [facility]' Quality Improvement Program, this case was reviewed by another member of our pathology staff ([email or web address]). The results were called to Dr. Bowens's office by [facility] Client PATIENT NAME: TRISTON ALMONTE PATHOLOGY DATE OF : 41 REPORT #: [id number] PHYSICIAN: ELBERT PATHOLOGY PCP: MAILE KAMARA MD REPORT IS CONFIDENTIAL AND NOT TO BE RELEASED WITHOUT AUTHORIZATION [facility] [address] [place], [place] [address] Signed Services Department on 05/09/2020. NAL:AMB:cml:C1NR GROSS DESCRIPTION: The specimen, labeled "MARTELL," and designated on the requisition "colon neoplasm biopsy at 20 cm," is received in formalin and consists of multiple fragments of pink-timmons tissue (0.7 x 0.5 x 0.4 cm in aggregate). The specimen is submitted entirely in cassette (A1). AC (under the direct supervision of a pathologist) The Gross Description was prepared using a voice recognition system. The report was reviewed for accuracy; however, sound-alike word errors, addition and/or deletions may occur. If there is any question about this report, please contact Client Services. ADDITIONAL NOTES: Immunohistochemical and/or in situ hybridization studies were performed on this case with the appropriate positive controls that react as expected. This test was developed and its performance characteristics determined by [facility]. It has not been cleared or approved by the U.S. Food and Drug Administration. The FDA has determined that such clearance or approval is not necessary. This test is used for clinical purposes. It should not be regarded as investigational or for research. [facility] is certified under the Clinical Laboratory Improvement Amendments of 1988 (CLIA) as qualified to perform high complexity clinical laboratory testing. PERFORMING LABORATORY: The technical component was performed by [facility], [address] [place] [id number] (Vegetable Preparer: Karli Vora MD; CLIA# [id number]). Professional interpretation was performed by [facility], [address] [facility] [place] [address] (CLIA# [id number]). Diagnostician: Ale Mcintosh MD Pathologist Electronically Signed 05/09/2020 Copies: PATIENT NAME: ALMONTETRISTON PATHOLOGY DATE OF : 41 REPORT #: [id number] PHYSICIAN: ELBERT PATHOLOGY PCP: MAILE KAMARA MD REPORT IS CONFIDENTIAL AND NOT TO BE RELEASED WITHOUT AUTHORIZATION [facility] [address] [facility] [place], [place] [address] Signed ~ PATIENT NAME: ALMONTETRISTON CARYE PATHOLOGY DATE OF : 41 REPORT #: [id number] PHYSICIAN: ELBERT PATHOLOGY PCP: MAILE KAMARA MD REPORT IS CONFIDENTIAL AND NOT TO BE RELEASED WITHOUT AUTHORIZATION
--- NOTE | 2020-05-10 08:31 | OR ---
[facility] [address], [place] [address] Signed DATE OF OPERATION: 05/05/2020 SURGEON: Amberly Issa MD PREOPERATIVE DIAGNOSES: 1. Suspicious finding on PET scan for sigmoid neoplasm. 2. Multiple prior neoplasm (bilateral breast cancer). 3. Ovarian cancer with resection in 2014. 4. 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 POSTOPERATIVE DIAGNOSIS: Subtle flat neoplasm of sigmoid at 20 cm. PROCEDURE: Total colonoscopy to cecum with biopsy of neoplasm and spot tattoo application. ANESTHESIA: Intravenous sedation, fentanyl 200 mcg and Versed 8 mg. INDICATION: This 75-year-old white woman is a patient of Dr. Holley and well known to me from the past. She is additionally followed by Dr. Regan. She had left-sided breast cancer in 1999 treated by me with left modified radical mastectomy, right-sided breast cancer in May of 2007, also treated with mastectomy. She has also undergone treatment of left ovarian carcinoma by me with abdominal hysterectomy, tumor debulking in 2014 and has had diagnosis of a left upper lobe mass 1.5 cm ultimately confirmed to be squamous cell carcinoma treated primarily with radiation therapy. She recently underwent a PET scan, which showed avid uptake in the sigmoid colon, worrisome for malignancy. She has undergone colonoscopy in the past noting sigmoid diverticulosis. She has also had polyps in the past. She is admitted at this time to undergo colonoscopy to better characterize the findings from the PET scan regarding the sigmoid colon. She understands the risks of bleeding, infection, and perforation, and wished to proceed. FINDINGS: The prep was good. There were numerous areas of diverticulosis of the sigmoid and left colon. Complete colonoscopy was undertaken to the cecum. At about 20 cm from the anal verge was a very subtle relatively flat, but clear finding of neoplasm. It did not have the typical appearance of colon cancer, though that is the most likely diagnosis rather than transmural ovarian carcinoma. Multiple biopsies were obtained as well as Electronically Signed By: AMBERLY ISSA MD 05/10/20 0831 PATIENT NAME: TRISTON ALMONTE OPERATIVE REPORT DATE OF : 43 REPORT #: [id number] PHYSICIAN: AMBERLY ISSA MD PCP: MAILE HOLLEY MD REPORT IS CONFIDENTIAL AND NOT TO BE RELEASED WITHOUT AUTHORIZATION [facility] [address], [place] [address] Signed application of tattoo dye to balbir the lesion on the distal aspect. DESCRIPTION OF PROCEDURE: The patient was brought to the endoscopy suite and placed in lateral decubitus position, given intravenous sedation to the point of slurred speech and nystagmus. Digital rectal examination was normal. The Olympus video colonoscope was passed in the rectum and manipulated throughout the colon ultimately intubating the cecum. Numerous diverticula were seen in the left colon and sigmoid. The ileocecal valve was normal. Scope was withdrawn from that point. Careful examination was undertaken showing no sign of abnormality. At approximately 20 cm from the anal verge with the area initially appearing to be simply a stool covered mucosa, but mindful that the remaining colon was well prepped. Irrigation and various manipulations undertaken, ultimately revealing this was a stool covered somewhat flat neoplasm. She did not have typical appearance of colon cancer, but likely is. Multiple biopsies were taken of the lesion. Spot endoscopic tattoo dye was used with a sclerotherapy needle to balbir the distal aspect of the lesion, which was about 20 cm from the anal verge. Further withdrawal of scope showed no other findings. The scope was removed and the patient was taken to the recovery room in good condition. CONCLUDING DIAGNOSIS: Neoplasm of the sigmoid at 20 cm, now biopsied and marked. PLAN: Likely resection will be necessary. We will obtain a CEA and a CA-125 level today and see patient back in the office in mid week next week anticipating resection in the near future. MD SARKIS Nelson/CLAIREL /[id number] cc: MD [place] MD Electronically Signed By: AMBERLY ISSA MD 05/10/20 0831 PATIENT NAME: TRISTON ALMONTE OPERATIVE REPORT DATE OF : 41 REPORT #: [id number] PHYSICIAN: AMBERLY ISSA MD PCP: MAILE HOLLEY MD REPORT IS CONFIDENTIAL AND NOT TO BE RELEASED WITHOUT AUTHORIZATION [facility] [address] [place] [facility] [place], [place] [address] Signed Copies: MAILE HOLLEY MD, ROBERT C MD ~ Electronically Signed By: AMBERLY ISSA MD 05/10/20 0831 PATIENT NAME: TRISTON ALMONTE OPERATIVE REPORT DATE OF : 41 REPORT #: [id number] PHYSICIAN: AMBERLY ISSA MD PCP: MAILE HOLLEY MD REPORT IS CONFIDENTIAL AND NOT TO BE RELEASED WITHOUT AUTHORIZATION
== END 2020-05-05 11:46 | disposition home or self-care (01) ==
LOC: OPS 09:20 → DS 09:22 → OPS 10:30 → DS 13:00
PROVIDERS: ATTEND Surgery
PROC: 3E0H8KZ Introduction of Other Diagnostic Substance into Lower GI, Via Natural or Artificial Opening Endoscopic (ICD-10-PCS; 2020-05-05)
PROC: 0DBN8ZX Excision of Sigmoid Colon, Via Natural or Artificial Opening Endoscopic, Diagnostic (ICD-10-PCS; principal; 2020-05-05 10:30)
DX: C18.7 Malignant neoplasm of sigmoid colon (principal); K57.30 Diverticulosis of large intestine without perforation or abscess without bleeding; E66.9 Obesity, unspecified; G62.9 Polyneuropathy, unspecified; Z85.43 Personal history of malignant neoplasm of ovary; Z85.118 Personal history of other malignant neoplasm of bronchus and lung; Z90.13 Acquired absence of bilateral breasts and nipples; Z79.899 Other long term (current) drug therapy; Z68.28 Body mass index [BMI] 28.0-28.9, adult; Z87.891 Personal history of nicotine dependence
CPT/HCPCS: 88305; 88341; 88342; 99153; G0500; J2250; J3010; J7121

== ENCOUNTER 2020-05-09 13:15 | Inpatient (IN) | payer MEDICARE, OTHER ==
[~2020-05-09] VITALS: Ht 172.7 cm; Wt 86.4 kg
--- NOTE | ~2020-05-09 | DS ---
[facility] [address], [place] [address] Draft ADMISSION DATE: 05/12/2020 DISCHARGE DATE: 05/16/2020 REASON FOR ADMISSION: This 75-year-old white woman is a patient of Dr. Maile Holley, well known to me from the past. She additionally sees Dr. Wesley Regan. She has had sequential treatment of breast cancer by me and in 2014, was also found to have left-sided ovarian carcinoma, undergoing hysterectomy and tumor debulking with subsequent chemotherapy. She subsequently developed a nodule in the left upper lobe, which proved to be squamous cell carcinoma, treated by radiation therapy alone. She no longer smokes. A recent surveillance PET scan as ordered by Dr. Ronquillo, radiation therapist in [place], determined an avid uptake in the sigmoid colon. A colonoscopy was recently performed, which showed a neoplasm there. 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 She is admitted to undergo segmental resection of the colon. PERTINENT PHYSICAL EXAMINATION: GENERAL: Elderly white woman, who looks to be in no significant distress. CHEST: Clear. HEART: Regular without murmur. ABDOMEN: Somewhat obese. There is no palpable mass. No ascites. A midline incision was noted. Additionally, preoperative CEA and CA-125 not particularly abnormal. HOSPITAL COURSE: She underwent operation on May 12, 2020, which included midline laparotomy, extensive lysis of adhesions. This alone was prolonged, complicated, and difficult. Ultimately, sigmoid resection with side-to-end coloproctostomy was undertaken. There was mobilization of splenic flexure as well. A drain was placed. She tolerated the procedure well. Avoidance of opiates was deemed appropriate in her situation as much as possible. She was given a clear liquid diet the night of operation. The following day did have bowel function. The drain was placed, showed only serosanguineous fluid. She was treated primarily with intravenous Tylenol, intravenous Toradol, and converted promptly to oral analogous agents including Tylenol plain and Motrin. As the patient is on Vicodin 3 times a day for neuropathy pain, this was re-initiated primarily for that purpose and so as to avoid opiate withdrawal syndrome. She had progressive improvement and was advanced in her diet. Bowel movements were soon thereafter forthcoming. By day of discharge, she is ambulating well, tolerating a regular diet, has normal bowel movements, minimal incisional pain, and doing well. PATIENT NAME: TRISTON ALMONTE DISCHARGE SUMMARY DATE OF : 41 REPORT #: [id number] PHYSICIAN: AMBERLY ISSA MD PCP: MAILE HOLLEY MD REPORT IS CONFIDENTIAL AND NOT TO BE RELEASED WITHOUT AUTHORIZATION [facility] [address], [place] [address] Draft FOLLOWUP PLAN: She will return to see me in approximately 4 weeks. We will review her pathology report. This is an unusual manifestation of ovarian cancer. Whether or not additional chemotherapy will be appropriate depends on final pathology and so on. DISCHARGE MEDICATIONS: 1. Motrin 600 mg p.o. q.6 hours as needed for pain, #60, and Tylenol 1000 mg p.o. q.6 hours as needed for pain, #60. 2. She will continue her folic acid tablet one p.o. daily. 3. Vitamin B complex one p.o. daily. 4. Vitamin D 5000 units p.o. daily. 5. Vitamin A 8000 units daily. 6. Magnesium oxide 250 mg p.o. daily. 7. Carbidopa-levodopa 10/100 one to two as needed for restless legs. 8. Fluoxetine 20 mg p.o. daily. 9. [place] 10/325 one p.o. q.4-6 hours as needed for neuropathy pain. 10. Cilostazol 50 mg p.o. daily for leg circulation. DISCHARGE DIAGNOSES: 1. 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 2. History of ovarian carcinoma on the left side, 2014. 3. History of breast cancer sequentially bilateral. 4. History of incisional hernia repair. 5. Restless legs syndrome (benefitted by carbidopa). MD SARKIS Nelson/MODL /[id number] cc: Dr. Yg Holley MD PATIENT NAME: TRISTON ALMONTE DISCHARGE SUMMARY DATE OF : 41 REPORT #: [id number] PHYSICIAN: MABERLY ISSA MD PCP: MAILE HOLLEY MD REPORT IS CONFIDENTIAL AND NOT TO BE RELEASED WITHOUT AUTHORIZATION [address] [address] Draft Wesley Regan MD Copies: MAILE HOLLEY MD,WESLEY Carlos MD ~ PATIENT NAME: TRISTON ALMONTE DISCHARGE SUMMARY DATE OF : 43 REPORT #: [id number] PHYSICIAN: AMBERLY ISSA MD PCP: MAILE HOLLEY MD REPORT IS CONFIDENTIAL AND NOT TO BE RELEASED WITHOUT AUTHORIZATION
--- NOTE | 2020-05-12 14:41 | NUR ---
05/12/20 1441 Vivek,Dyana 1433 PT ARRIVED TO PACU WITH ORAL AIRWAY IN PLACE, ON 6L VIA MASK, RESP EVEN AND UNLABORED. JAW THRUST USED OFF AND ON TO MAINTAIN AIRWAY VSS. 1436 JAW THRUST NO LONGER NEEDED, NO PILLOW IN PLACE BEHIND HEAD TO MAINTAIN AIRWAY.
--- NOTE | 2020-05-12 15:15 | NUR ---
PT ARRIVED TO MED SURG ROOM 110 VIA HOSPITAL BED FROM PACU AT THIS TIME. PT ALERT AND ORIENTED TO VOICE. BEDSIDE REPORT RECEIVED FROM JEYSON DUMONT. PT ASSESSMENT COMPLETED. VSS ON RA AT THIS TIME. PT DENIES NEEDS OR CONCERNS AT THIS TIME. CALL LIGHT AND ICE CHIPS IN REACH.
--- NOTE | 2020-05-12 18:15 | NUR ---
PT RESTING IN SEMIFOWLERS POSITION RESTING IN BED ALERT AND ORIENTED TO VOICE. PT STATES PAIN TO ABD IS TOLERABLE AT THIS TIME. VSS. CALL LIGHT AND ICE CHIPS IN REACH. NO NEEDS OR CONCERNS VOICED.
--- NOTE | 2020-05-12 19:20 | NUR ---
Pt lying in bed. Shift report recieved. White board cleared. scant sersangineous spotting noted on midline dressing. MARTELL drain in place, output serosangineous in color. Cpox in place, 2L NC. O2 sat and HR WNL. Call light within reach, no further needs at this time.
--- NOTE | 2020-05-12 19:45 | NUR ---
PT IS RESTING WITH EYES CLOSED, CALL LIGHT IS CLOSE.
--- NOTE | 2020-05-12 20:50 | NUR ---
PT LYING IN BED. C/O HAVING PAIN ON INCISION SITE/BACK. HOB LOWERED, REPORTS BEING MORE COMFORTABLE. ICE PACK GIVEN. PAIN MEDS REQUESTED, REMINDED THE TIME OF WHEN IT CAN BE GIVEN. PT AGREEABLE TO PLAN TO BRING MEDS WHEN AVAILABLE AT 2200. MIDLINE DRESSING INTACT, NO NEW SHADOWING ON DRESSING. ASSESSMENT COMPLETE. VS STABLE. I AND O'S DONE. SCHEDULED MEDS GIVEN. CALL LIGHT WITHIN REACH. NO FURTHER CONCERNS AT THIS TIME.
--- NOTE | 2020-05-12 22:00 | NUR ---
ROUNDED ON PT. LYING IN BED, SLEEPING, RR WNL. NO LABORED BREATHING NOTED. CALL LIGHT WITHIN REACH.
--- NOTE | 2020-05-12 22:44 | NUR ---
IN ROOM TO ROUND ON PT. PT REPORTS INCREASING PAIN, PRN IV TYLENOL INFUSING, SITE WNL. PT STATES, "WHEN I GET UNCOMFORTABLE, I LAY ON MY BACK". PT ASSISTED WITH RESPOITIONING WITH HELP FROM ANTOLIN REEEVS. PT STATES, "FOR NOW THAT'S BETTER". EDUCATION PROVIDED ON MD'S DESIRE FOR OPIOD FREE PAIN INTERVENTION. PT VERBALIZED UNDERSTANDING. SMALL AMOUNT BITTER PHLEGM REPORTED BY PT, EMESIS BAG AT BEDSIDE. NO FURTHER NEEDS. 2LNC IN PLACE, CALL LIGHT IN REACH.
--- NOTE | 2020-05-12 23:55 | NUR ---
ROUNDED ON PT. LYING IN BED. EYES CLOSED. UNLABORED BREATHING. RR WNL. CALL LIGHT WITHIN REACH. NO FURTHER CONCERNS AT THIS TIME.
--- NOTE | 2020-05-13 00:52 | NUR ---
PT LYING IN BED. INCONT BM, SMALL SMEAR. RN MAK AND ANTOLIN REEVES ASSISTED PT TO STAND, TOLERATED WELL. LINENS CHANGED, ASSESSMENT COMPLETE. REPOSITIONED PT AND STATES THAT PAIN IS TOLERABLE.CALL LIGHT WITHIN REACH.NO FURTHER CONCERNS AT THIS TIME. NO CHANGES IN MIDLINE DRESSING.
--- NOTE | 2020-05-13 00:54 | NUR ---
IN ROOM PER PT REQUEST TO GIVE PRN PAIN MEDICATION (SEE EMAR). PT REPORTS 10/10 PAIN AND REPORTS BEING INCONTINENT OF STOOL. WITH HELP FROM JEYSON FRANKLIN AND ANTOLIN REEVES, PT UP OOB 2PA. TOLERATED WELL AND DENIED DIZZINESS. SAMM CARE COMPLETE AND FRESH CHUCKS IN PLACE. PT BACK IN BED AND REPORTS TOLERABLE PAIN. WILL CONTINUE TO MONITOR. JEYSON YOUSSEF IN ROOM FOR ASSESSMENT.
--- NOTE | 2020-05-13 00:55 | NUR ---
IN RM WITH RN FOR PT CALL LIGHT, PT HAD BM, C/O PAIN, RN PROVIDE PAIN MGMT, GOT PT 2PA STAND AT BEDSIDE, CHUX CHANGED, PT CLEANED UP, PT BK IN BED, VITALS DONE, I&OS IN, NEW ICE PACK PROVIDED, NO FURTHER REQUEST AT THIS TIME
--- NOTE | 2020-05-13 01:25 | NUR ---
IN ROOM TO ANSWER CALL LIGHT, WARM BLANKETS PROVIDED PER PT REQUEST. PT REPORTS PAIN IS IMPROVING AND TOLERABLE. WILL MONITOR. IV FLUIDS INFUSING, SITE WNL. CALL LIGHT IN REACH.
--- NOTE | 2020-05-13 02:33 | NUR ---
PT LYING IN BED. EYES CLOSED. NONLABORED BREATHING. RR WNL. SCHEDULED ANTIBIOTIC GIVEN. IV SITE WNL. CALL LIGHT WITHIN REACH. PT SLEPT THROUGH MED ADMINISTRATION, NO FACIAL GRIMACING NOTED OR SIGNS OF PAIN.
--- NOTE | 2020-05-13 02:54 | NUR ---
ROUNDED ON PT. LYING IN BED, REPOSITIONED PT AND PILLOWS. NONLABORED BREATHING. RR WNL. PT STATES HER FEET BEING HOT AND COLD DUE TO RESTLESS LEG SYNDROME. . CALL LIGHT WITHIN REACH. NO FURTHER CONCERNS AT THIS TIME.
--- NOTE | 2020-05-13 06:44 | NUR ---
PT LYING IN BED. EYES CLOSED. STATES THAT PAIN IS TOLERABLE. 2PA TO THE COMMODE ASSISTED BY 2 BASS STRING WINDER'S. PT SEEMS COMFORTABLE. CALL LIGHT WITHIN REACH. NO OTHER CONCERNS AT THIS TIME.
--- NOTE | 2020-05-13 06:52 | NUR ---
PT GOT UP 2X THROUGHOUT SHIFT, 2PA. CALLS APPROPRIATLY. PAIN CONTROL DIFICULT START OF SHIFT BUT IMPROVED SHIFT PROGRESSED. PT VOIDING BORDERLINE QS. CLEAR LIQUID DIET. PRN ZOFRAN GIVEN X1.CABAN PATENT, SMEAR BM X1.MIDLINE DRESSING WITH SPOTTED SHADOWING.
--- NOTE | 2020-05-13 07:05 | NUR ---
PT RESTING IN SEMIFOWLERS POSITION IN BED EYES CLOSED AND RESPIRATIONS EVEN AND UNLABORED ON RA PT SATTING IN LOW 90'S PER CPOX. PT APPEARS TO BE SLEEPING COMFORTABLY. CALL LIGHT AND H2O IN REACH.
--- NOTE | 2020-05-13 07:55 | NUR ---
PATIENT RESTING IN BED. WHITE BOARD UPDATED. PATIENT'S HANDS AND FACE WASHED. CALL LIGHT WITHIN REACH. NO OTHER NEEDS AT THIS TIME
--- NOTE | 2020-05-13 09:56 | NUR ---
PATIENT RESTING IN BED. VISITOR IN ROOM. VITAL SIGNS AND I&O DONE. CALL LIGHT WITHIN REACH. NO OTHER NEEDS AT THIS TIME
--- NOTE | 2020-05-13 12:35 | NUR ---
PT RESTING IN SEMIFOWLERS POSITION IN BED ALERT AND ORIENTED. PT ASSISTED UP TO BSC WITH 1PA AND FWW. CALL LIGHT IN REACH AND PT AGREES TO USE WHEN FINISHED. PT DENIES DIZZINESS SOB OR OTHER SYMPTOMS.
--- NOTE | 2020-05-13 12:45 | NUR ---
CALL LIGHT ANSWERED. PATIENT RESTING IN BED. PATIENT ASSISTED TO USE THE BATHROOM. ONE PERSON ASSISTING WITH WALKER. PATIENT BACKS TO BED. CALL LIGHT WITHIN REACH. NO OTHER NEEDS AT THIS TIME
--- NOTE | 2020-05-13 13:00 | NUR ---
PT RESTING IN SEMIFOWLERS POSITION IN BED. PT ALERT AND ORIENTED, STATES SHE IS COMFORTABLE AND DENIES SOB OR NAUSEA. ASSESSMENT COMPLETED. CALL LIGHT AND H2O IN REACH.
--- NOTE | 2020-05-13 13:31 | NUR ---
PATIENT RESTING IN BED. VITAL SIGNS AND I&O DONE. CALL LIGHT WITHIN REACH. NO OTHER NEEDS AT THIS TIME
--- NOTE | 2020-05-13 15:16 | NUR ---
PT WAS ASSISTED TO AND FROM RESTROOM WITH 1PA AND FWW. PT BACK TO BED AND REPORTS 10/10 ABD PAIN TO CENTER ABD INCISION. PRN PO NORCO ADMINISTERED PER PT REQUEST. CALL LIGHT AND H2O IN REACH. PT DENIES FURTHER NEEDS OR CONCERNS. PT CONTINUES TO TOLERATE RA WITH O2 SATS IN MID TO HIGH 90'S. DSG REMAINS INTACT WITH ONLY SCANT SHADOWING THAT HASNT CHANGED THIS SHIFT.
--- NOTE | 2020-05-13 17:28 | NUR ---
PATIENT RESTING IN BED. VITAL SIGNS AND I&O DONE. CALL LIGHT WITHIN REACH. NO OTHER NEEDS AT THIS TIME
--- NOTE | 2020-05-13 17:35 | NUR ---
PT WAS UP AMBULATING IN HALLS WITH 1PA AND FWW. PT TOLERATED ONE SMALL LAP AROUND NURSING STATION AND THEN BACK TO BED. PT STATES SHE IS COMFORTABLE AND DENIES FURTHER NEEDS OR CONCERNS.
--- NOTE | 2020-05-13 19:00 | NUR ---
PT LYING IN BED. REQUESTED PAIN MEDS. JEYSON FOX ADMINISTED PRN PAIN MED. MIDLINE DRESSING INTACT. SCANT SHADOWING SEROSANGUINEOUS. SHIFT REPORT RECIEVED BY JEYSON FOX. WHITE BOARD CLEARED. CALL LIGHT WITHIN REACH. NO FURTHER CONCERNS AT THIS TIME.
--- NOTE | 2020-05-13 19:17 | NUR ---
PT REPORTS 8/10 SHARP PAIN TO ABD MIDLINE INCISION AFTER AMBULATING TO AND FROM BATHROOM WITH 1PA PER AUTOMOTIVE SERVICE DIRECTOR AND FWW. PRN PO MOTRIN AND OPIOD ADMINISTERED PER PT REQUEST. NO FURTHER NEEDS OR CONCERNS VOICED. BEDSIDE REPORT WAS GIVEN TO JEYSON CORADO.
--- NOTE | 2020-05-13 19:50 | NUR ---
pt requesting to get up to the toilet, taken sba by this hydraulic repairer, bk in bed at this time, pt c/o pain, requesting pain med, day shift rn informed, no further need at this time
--- NOTE | 2020-05-13 20:05 | NUR ---
CPOX ALARMING, PT RECENTLY MEDICATED WITH PRN PAIN MEDS. O2 SAT 85-86% ON RA, 1LNC IN PLACE. O2 SUSTAINING IN 90'S. PRIMARY RN NOEMI MADE AWARE.
--- NOTE | 2020-05-13 20:49 | NUR ---
VS AND I&Os COMPLETE. FRESH WATER GIVEN TO pt. NOTHING FURTHER NEEDED AT THIS TIME.
--- NOTE | 2020-05-13 21:12 | NUR ---
PT LYING IN BED. SCHEDULED MEDS GIVEN. ASSESSMENT COMPLETE. 1PA TO THE BATHROOM WITH FWW. NO CHANGES ON DRESSING AT MIDLINE. CALL LIGHT WITHIN REACH. NO FURTHER CONCERNS AT THIS TIME. PT ON RA, O2 SAT SUSTAINING AT MID 90'S.
--- NOTE | 2020-05-13 22:15 | NUR ---
PT PLACED 1L NC WITH O2 SAT IN 80'S. IN ROOM TO REASSESS, O2 SAT NOW 97%. O2 TITRATED DOWN TO 0.5L NC. RR WNL. UNLABORED BREATHING NOTED. CALL LIGHT IN REACH. NO FURTHER NEEDS AT THIS TIME.
--- NOTE | 2020-05-13 23:35 | NUR ---
pt up to void, sba fww with iv pole, bk to bed at this time, no further needs at this time
--- NOTE | 2020-05-13 23:35 | NUR ---
PT ASSISTED TO THE BATHROOM BY ANTOLIN REEVES. REPOSITIONED IN BED, CALL LIGHT IN REACH. NO FURTHER NEEDS OR CONCERNS AT THIS TIME.
--- NOTE | 2020-05-14 01:25 | NUR ---
PT ASSISTED TO THE BATHROOM 1PA, FWW. ASSESSMENT COMPLETE. I AND O'S DONE. PT STATES HAVING PAIN /. PRN PAIN MEDS ADMINISTERED PER REQUEST. MIDLINE DRESSING REMAINS UNCHANGED WITH SCANT SEROSANGUINEOUS SHADOWING DRAINAGE NOTED. REPOSITIONED IN BED. CALL LIGHT IN REACH. NO FURTHER CONCERNS AT THIS TIME. NEW IV BAG HUNG AND INFUSING. SITE WNL.
--- NOTE | 2020-05-14 04:04 | NUR ---
ROUNDED IN PT. 1PA FWW TO THE BATHROOM. VS STABLE. REPOSITIONED IN BED. CPOX 92% O2 SAT TITRATED TO RA. CALL LIGHT IN REACH. NO FURTHER NEEDS OR CONCERNS.
--- NOTE | 2020-05-14 06:16 | NUR ---
PT UP TO VOID, NEW CHUX ON BED, PT BK IN BED, C/O PAIN, PT ASKING ABT WHEN SHE WILL GET NEXT MED, INFORMED PRIMARY RN, ASHWINOX CONNECTED, DENIES FURTHER NEEDS AT THIS TIME
--- NOTE | 2020-05-14 06:25 | NUR ---
PT LYING IN BED. EYES CLOSED. RR WNL. UNLABORED BREATHING NOTED. CALL LIGHT IN REACH. NO FURTHER NEEDS AT THIS TIME.
--- NOTE | 2020-05-14 06:28 | NUR ---
ALERT AND ORIENTED. SLEPT THROUGHOUT THE NIGHT.PT 1PA W/FWW. TOLERATED WELL. CLEAR LIQUID DIET, ENCOURAGE PO INTAKE. TAKING PRN MOTRIN AND NORCO PAIN MEDICATION FOR PAIN. NO CHANGES ON MIDLINE DRESSING. PT ON RA, 0.5L NC PRN WHEN ASLEEP.
--- NOTE | 2020-05-14 06:30 | NUR ---
IN TO EMPTY CABAN CATH, NO FURTHER NEEDS AT THIS TIME
--- NOTE | 2020-05-14 07:00 | NUR ---
PT RESTING IN SEMIFOWLERS POSITION IN BED. ALERT AND ORIENTED. BEDSIDE SHIFT REPORT RECEIVED FROM JEYSON CORADO. CALL LIGHT AND H2O IN REACH. ENCOURAGED PT TO USE CALL LIGHT FOR NEEDS.
--- NOTE | 2020-05-14 07:19 | NUR ---
prn pain medication given for 8/10 abd pain (see emar). no further needs, call light in reach.
--- NOTE | 2020-05-14 08:30 | NUR ---
SBA W/FWW TO BATHROOM AND BACK. LINENS CHANGED, FACE AND HANDS WASHED, FRESH WATER PROVIDED. PATIENT SITTING AT SIDE OF BED USING PHONE, CALL LIGHT IN REACH
--- NOTE | 2020-05-14 08:42 | NUR ---
PT RESTING SUPINE IN BED A/O X3, RESPIRATIONS EVEN AND UNLABORED. CALL LIGHT AND H2O IN REACH. ASSESSMENT COMPLETED AND AM MEDS ADMINISTERED. NO FURTHER NEEDS OR CONCERNS VOICED.
--- NOTE | 2020-05-14 09:05 | NUR ---
VITALS AND I&OS CHARTED
[2020-05-14] MEDS ORDERED: HYDROCODON-ACE1 EAC8 PO (09:19)
--- NOTE | 2020-05-14 11:58 | NUR ---
SBA USING FWW AMBULATED 1 FULL LAP AROUND NURSES STATION. PATIENT UP IN CHAIR, LEGS ELEVATED, IN ROOM. MARTELL DRAINED.CALL LIGHT IN REACH
--- NOTE | 2020-05-14 13:44 | NUR ---
PATIENT RESTING IN BED, EYES CLOSED. VITALS AND I&OS CHARTED. CALL LIGHT IN REACH, NO OTHER NEEDS AT THIS TIME
--- NOTE | 2020-05-14 14:28 | NUR ---
PT ALERT AND ORIENTED RESTING IN SEMIFOWLERS POSITION IN BED. PT REPORTS 6/10 PAIN. PT REQUESTED AND RECEIVED PRN PO MOTRIN AND NORCO AT THIS TIME. PT ASSESSMENT COMPLETED. CALL LIGHT AND H2O IN REACH. NO FURTHER NEEDS OR CONCERNS VOICED.
--- NOTE | 2020-05-14 16:30 | NUR ---
PT ALERT AND ORIENTED RESTING IN SEMIFOWLERS POSITION IN BED. CALL LIGHT AND H2O IN REACH. NO NEEDS OR CONCERNS VOICED.
--- NOTE | 2020-05-14 17:39 | NUR ---
PATIENT RESTING IN BED. VISITOR IN ROOM. VITAL SIGNS AND I&O DONE. CALL LIGHT WITHIN REACH. NO OTHER NEEDS AT THIS TIME
--- NOTE | 2020-05-14 18:55 | NUR ---
SHIFT REPORT RECEIVED FROM DAYSHIFT JEYSON FOX AT BEDSIDE. PT RESTING QUIETLY IN BED WITH EYES CLOSED, RR EVEN AND UNLABORED. CPOX IN PLACE, O2 SAT 90% ON RA. HR 70'S. CALL LIGHT IN REACH.
--- NOTE | 2020-05-14 20:22 | NUR ---
CALL LIGHT ANSWERED. PT UP TO TOILET TO VOID. PT HAD SOFT BM WELL. PT REQUESTS PAIN MEDS FOR PAIN MIDLINE INCISION 02/06. PRN 1X NORCO AND 1X MOTRIN ADMINISTERED. CALL LIGHT WITHIN REACH
--- NOTE | 2020-05-14 20:55 | NUR ---
IN RM TO GET PT VITALS, PT UP TO THE TOILET, FRESH WATER PROVIDED
--- NOTE | 2020-05-14 21:30 | NUR ---
ASSESSMENT COMPLETE, SCHEDULED MEDS GIVEN (SEE EMAR). PT A/O, REPORTING PAIN IS IMPROVING, 4/10 PAIN. SCANT SPOTTED SHADOWING TO MIDLINE, MARTELL EMPTIED. SEROSANGUINEOUS IN COLOR. IV SITE WNL, FLUSHES EASILY. SCD'S IN PLACE. PT PREPARING TO AMBULATING IN HALLWAY. CALL LIGHT IN REACH.
--- NOTE | 2020-05-14 22:23 | NUR ---
PT UP TO AMBU ONE LAP IN DSOUZA, SBA FWW AND IV POLE, PT BL IN BED AT THIS TIME NO FURTHER NEEDS AT THIS TIME
--- NOTE | 2020-05-14 23:07 | NUR ---
PT RESTING QUIETLY IN BED WITH EYES CLOSED, RR EVEN AND UNLABORED. NO DISTRESS NOTED. O2 SAT 91% ON RA, HR WNL. CALL LIGHT IN REACH.
--- NOTE | 2020-05-14 23:41 | NUR ---
CPOX ALARMING, O2 SAT MID 80'S, PT UP SBA TO VOID AND BACK TO BED. PLACED ON 0.5LNC WHILE SLEEPING. O2 SAT MAINTAIING IN MID 90'S. NO FURTHER NEEDS, CALL LIGHT IN REACH.
--- NOTE | 2020-05-15 00:46 | NUR ---
IN ROOM TO ANSWER CALL LIGHT. PT UP SBA WITH FWW TO VOID AND HAVE BM. PT BACK TO BED. 0.5LNC IN PLACE, CPOX ON. O2 SAT AND HR WNL. CALL LIGHT IN REACH.
--- NOTE | 2020-05-15 02:09 | NUR ---
pt reports increasing pain, 8/10 to bad incision. prn norco given (see emar). assessment complete, no new changes or concerns. pt brushed teeth and is back in bed, 0.5lnc in place. o2 sat and hr wnl. call light in reach.
--- NOTE | 2020-05-15 04:45 | NUR ---
NEW BAG IV FLUIDS HUNG AND INFUSING, SITE WNL. PT IN BED, 0.5LNC IN PLACE. O2 SAT AND HR WNL. NO FURTHER NEEDS, CALL LIGHT IN REACH.
--- NOTE | 2020-05-15 04:46 | NUR ---
PT OFF THE TOILET, BACK IN BED AT THIS TIME, TOOK VITALS AND I&OS, RN IN TO HANG NEW BAG OF LR, NO FURTHER NEEDS AT THIS TIME
--- NOTE | 2020-05-15 06:03 | NUR ---
SCHEDULED SENEMET AND PRN PAIN MEDICATION GIVEN FOR 8/10 PAIN (SEE EMAR). PT DENEIS ADDITIONAL NEEDS, CALL LIGHT IN REACH. IV FLUIDS INFUSING, SITE WNL.
--- NOTE | 2020-05-15 06:37 | NUR ---
PT HAD AN UNEVENTFUL NIGHT, PAIN CONTROLLED WITH PRN PAIN MEDICATIONS AND SCHEDULED SENEMET. CALLS APPROPRIATELY, 1PA WITH FWW. IV FLUIDS, REGULAR DIET. ENCOURAGE PO INTAKE. NO NAUSEA REPORTED. MIDLINE DRESSING INTACT WITH SPOTTED SHADOWING. MARTELL OUTPUT FOR SHIFT 40MLS, SEROSANGUINEOUS IN COLOR.
--- NOTE | 2020-05-15 07:34 | NUR ---
BEDSIDE REPORT..PT RESTING IN BED EYES CLOSED RR EVEN ON RA 92% OXYGEN SATURATION PER BEDSIDE PULSE OXIMETRY.
--- NOTE | 2020-05-15 07:43 | NUR ---
PATIENT SLEEPING. WHITE BOARD UPDATED. CALL LIGHT WITHIN REACH. NO OTHER NEEDS AT THIS TIME
--- NOTE | 2020-05-15 09:09 | NUR ---
PT UP IN RECLINER REPORTS BREAKFAST TASTES GOOD, REPORTS PAIN 6/10 TYLENOL/IBUPROFEN ADMINISTERED FOR PAIN MANAGEMENT, PLAN TO WALK AFTER BREAKFAST.
--- NOTE | 2020-05-15 09:18 | NUR ---
STRIP MARTELL DRAIN TUBING, PATENT, NO ISSUES NOTED
--- NOTE | 2020-05-15 09:55 | NUR ---
PATIENT SITTING UP IN CHAIR. VITAL SIGNS AND I&O DONE. CALL LIGHT WITHIN REACH. NO OTHER NEEDS AT THIS TIME
--- NOTE | 2020-05-15 10:33 | NUR ---
pt up ambulating in halls now with thierry musa. reports increase in abd pain with activity.
--- NOTE | 2020-05-15 10:45 | NUR ---
PATIENT AMBULATING IN THE HALLWAY. ONE PERSON ASSISTING WITH WALKER.
--- NOTE | 2020-05-15 11:30 | NUR ---
PATIENT USING THE BATHROOM. VISITOR IN ROOM. PATIENT BACKS TO CHAIR. ONE PERSON ASSISTING WITH WALKER. CALL LIGHT WITHIN REACH. NO OTHER NEEDS AT THIS TIME
--- NOTE | 2020-05-15 11:33 | NUR ---
PATIENT AMBULATED 1 LAP AROUND NURSES STATION, 1PA FWW. PATIENT NOW BACK TO BED. CALL LIGHT IN REACH. NO FURTHER NEEDS AT THIS TIME.
--- NOTE | 2020-05-15 12:15 | NUR ---
PT UP IN RECLINER VISITING WITH SPOUSE, REPORTS PAIN 01/06, ONE TAB NORCO 5/325 ADMINISTERED AT THIS TIME. WHEN ASKED ABOUT GOING FOR A WALK PT SAID, "I WILL IN JUST A LITTLE BIT, GIVE THE PAIN MEDICINE A LITTLE BIT" LUNCH TRAY AT RECLINER SIDE. PATIENTS SPOUSE BROUGHT IN FANCY COFFEE PT HAS BEEN DRINKING WELL.
[2020-05-15] MEDS ORDERED: CILOSTAZOL50 MG PO (12:25)
--- NOTE | 2020-05-15 12:28 | NUR ---
Medications reconciled using pharmacy records and patient interview
--- NOTE | 2020-05-15 13:00 | NUR ---
PT UP AMBULATING IN HALLS WITH OCCUPATIONAL THERAPY AIDE AND SPOUSE. TOLERATING ACTIVITY WELL.
--- NOTE | 2020-05-15 13:12 | NUR ---
PATIENT RESTING IN BED. IN ROOM. VITAL SIGNS AND I&O DONE. CALL LIGHT WITHIN REACH. NO OTHER NEEDS AT THIS TIME
--- NOTE | 2020-05-15 14:10 | NUR ---
Message from [facility] wanting update of pt's stay. Surgery and progress notes faxed.
--- NOTE | 2020-05-15 14:22 | NUR ---
PT CALLED AND REPORTED THAT SHE IS HAVING RLS, PT WANTED MEDICATIONS, PT ENCOURAGED TO GET UP AND WALK IN HALLS, PT AGREED, AMBULATED LAP IN HALLS SHE TOLERATED ACTIVITY WELL HAS NOTEABLE LIMP LLE. PT BACK TO BED SCDS PLACED. WILL MONITOR FOR CONTINUED RLS.
--- NOTE | 2020-05-15 15:47 | NUR ---
INTO SEE PT, REMOVED MARTELL DRAIN, REMOVED ACTICOAT DRESSING, STERI STRIPS OPEN TO AIR. DISCUSSED PLAN TO POSSIBLY DISCHARGE TOMORROW/FRIDAY.
--- NOTE | 2020-05-15 16:07 | NUR ---
VERBALIZED AT PT BEDSIDE TO MAKE [employer] MEDICAITON FOR RLS TWO DOSES AVAILABLE PRN FOR THE PT TO HAVE WHEN SHE NEEDS THEM.
--- NOTE | 2020-05-15 16:25 | OR ---
[facility] [address], [place] [address] Signed DATE OF OPERATION: 05/12/2020 SURGEON: Amberly Issa MD PREOPERATIVE DIAGNOSES: 1. 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 2. History of stage IV ovarian carcinoma 2014, status post hysterectomy, tumor debulking chemotherapy. 3. History of bilateral (sequential) breast cancer. 4. History of left upper lobe lung cancer (squamous cell carcinoma). POSTOPERATIVE DIAGNOSES: 1. 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 2. History of stage IV ovarian carcinoma 2014, status post hysterectomy, tumor debulking chemotherapy. 3. History of bilateral (sequential) breast cancer. 4. History of left upper lobe lung cancer (squamous cell carcinoma). 5. Extensive intraabdominal adhesions. PROCEDURES: 1. Laparotomy and extensive lysis of adhesions, prolonged complicated, and difficult. 2. Sigmoid resection with side-to-end coloproctostomy (difficult). 3. Mobilization of splenic flexure. ANESTHESIA: General endotracheal; Axel Cowan CRNA INDICATIONS: This 75-year-old white woman is a patient of Dr. Maile Holley and well known to me from the past. She additionally sees Dr. Washington Regan and other providers. She has had sequential treatment for her breast cancer by me and in 2014 was found to have left-sided ovarian carcinoma undergoing hysterectomy and tumor debulking with subsequent chemotherapy. She subsequently developed a nodule in the left upper lobe which proved to be squamous cell carcinoma treated by radiation therapy alone. She is no longer smoking and on surveillance PET scan recently was found to have uptake in the sigmoid colon suggestive of neoplasm. This was surprising since she had undergone colonoscopy only two years ago, which showed no such finding only diverticulosis. Electronically Signed By: AMBERLY ISSA MD 05/15/20 1625 PATIENT NAME: TRISTON ALMONTE OPERATIVE REPORT DATE OF : 41 REPORT #: [id number] PHYSICIAN: AMBERLY ISSA MD PCP: MAILE HOLLEY MD REPORT IS CONFIDENTIAL AND NOT TO BE RELEASED WITHOUT AUTHORIZATION [facility] [address], [place] [address] Signed Colonoscopy was performed in the past week by me which showed a neoplasm at about 20 cm from the anal verge consistent with malignancy. Pathology report shows that the lesion is a papillary carcinoma consistent with ovarian primary rather than typical colon cancer proper. A CEA and CA-125 are not particularly abnormal. She is admitted at this time to undergo sigmoid resection on the probability this represents metastatic disease with penetration of the sigmoid or other causing the mucosal abnormality. Though she was not obstructed, she has had symptoms of pain and increasing symptoms suggestive of low-grade obstruction. She and her significant other understand the risks of operation including but not limited to bleeding, infection, unresectability, incurability, and other unforeseen complications. Understanding this they wished to proceed. FINDINGS: Extensive intraabdominal adhesions of the small bowel were noted particularly adherent to the anterior abdominal wall related to prior incisional hernia where implantation of mesh had been undertaken. Lysis of adhesions was extensive, but complete freeing the bowel and allowing for safe resection of the sigmoid colon. Colon itself had bulky appearance. There did not appear to be tumor extrinsic to the colon per se, though it was a bulky mass and therefore that may still have been possible. There was no evidence of carcinomatosis. There was no evidence of hepatic metastases. No ascites and the operation went well, though it was prolonged, complicated, and difficult. A side-to-end coloproctostomy has been accomplished with good continuity of bowel. DESCRIPTION OF PROCEDURE: The patient was brought to the operating room, given a general endotracheal anesthetic. Sequential compression device stockings used and heparin subcutaneously administered. Preoperative antibiotic cefoxitin was given. A full bowel prep including oral antibiotics had been given as well. A Horner catheter was placed. The abdomen was prepared with a chlorhexidine solution and draped sterilely. A long midline incision extending above the umbilicus to the symphysis pubis was initially used. The incision was made just above the umbilicus and below it a bit. Dense and thickened abdominal wall was noted related ultimately to prior implantation of Prolene mesh for hernia repair. Entry to the abdomen was not forthcoming very easily and on that basis, an incision was made higher in the epigastrium, plan for entry into the abdominal cavity well above the inflammatory process. This allowed for entry to the abdomen with extending of the fascial incision inferiorly through the prior mesh implantation. There was no evidence of ascites or carcinomatosis. Bowel loops had multiple adhesions between them and were taken down with sharp dissection. Ultimately, the fascia was opened superiorly to inferiorly freeing the underlying bowel without hazard. Some portions of abdominal fascia with mesh were left in continuity with the small bowel Electronically Signed By: AMBERLY ISSA MD 05/15/20 1620 PATIENT NAME: TRISTON ALMONTE OPERATIVE REPORT DATE OF : 41 REPORT #: [id number] PHYSICIAN: AMBERLY ISSA MD PCP: MAILE HOLLEY MD REPORT IS CONFIDENTIAL AND NOT TO BE RELEASED WITHOUT AUTHORIZATION [facility] [address], [place] [address] Signed loops. Small bowel was freed entirely from the ligament of Treitz to the terminal ileum, so as to provide access to the abdomen and better examine the sigmoid colon. Once the bowel loops were freed up, which took more than an hour for sure. The Bookwalter retractor was attached to the table and bowel retracted to the right side of the abdomen. Endoscopic tattoo dye could be seen in the area of a bulky tumor in the distal sigmoid somewhat tethered to the left abdominal area. Bowel loops were tethered by the adhesions to the pelvis and they were freed up more fully as well. At this point, the entire retroperitoneum and sigmoid and left colon and rectum could be well identified. Now the tumor was bulky, I did not see extrinsic tumor associated with it. It is recalled she had undergone hysterectomy by me five years ago already. There was no evidence of retroperitoneal adenopathy. The sigmoid colon was freed from the pelvic sidewall with blunt electrocautery dissection. In the distal descending colon, the mesentery was scored with electrocautery. Sequential application of hemostats to the mesenteric pedicles was undertaken, securing them with 0 silk ties. In the major vascular pedicles, double ligation was undertaken. The colon was transected transversely in the junction of the sigmoid and left colon with a CARLTON stapling device. Further dissection was undertaken over the sacral promontory identifying well the iliac bifurcation, the left ureter and so on. Dissection was carried below the tumor itself and to the mesenteric fat of the rectum and the peritoneal incision extended anteriorly providing a margin between the bladder and the mid rectum. A right angle bronchus clamp was applied to the rectal remnant with a clamp above it and the rectum transected with prostate scissors passed off the table. The photographs were taken throughout all this, and once the specimen was opened and examined, a large and bulky tumor was noted indeed. The pelvis was isolated with laparotomy packs and a side-to-end coloproctostomy was undertaken in a two-layer technique of interrupted 3-0 silk suture. The staple line on the left colon had been oversewn with interrupted 3-0 silk suture as well. The anastomosis appeared widely patent and watertight. Irrigation was undertaken. Clips were changed and to the left lower quadrant stab incision a 7 mm flat Hans drain was placed in the depths of the pelvis. The mesenteric defect of the sigmoid and pelvic peritoneum was reapproximated with interrupted 3-0 silk suture. The small bowel was carefully run from the proximal to the distal portions examining carefully. Those areas dissection was most challenging. There was no sign of najma enteric leak. A few areas with minimal deserosalization was reapproximated transversely with interrupted 3-0 silk sutures. No segment of bowel required resection. There is already sacrifice of the omentum from prior operation. The small bowel was returned to its anatomic position. Liver examined more fully showing no evidence of metastatic disease. Again, there was no sign of carcinomatosis. Midline fascia was reapproximated with running bidirectional #1 PDS. Skin closed with running subcuticular 3-0 Vicryl after irrigation of the subcutaneous space. Steri-Strips were applied as was a silver sponge dressing. The Electronically Signed By: AMBERLY ISSA MD 05/15/20 0321 PATIENT NAME: TRISTON ALMONTE OPERATIVE REPORT DATE OF : 41 REPORT #: [id number] PHYSICIAN: AMBERLY ISSA MD PCP: MAILE HOLLEY MD REPORT IS CONFIDENTIAL AND NOT TO BE RELEASED WITHOUT AUTHORIZATION [address] [address] Signed drain was attached to bulb suction. Blood loss was considered about 200 mL. Sponge, needle, and instrument counts were correct x3. The operation was prolonged, complicated, and difficult lasting at least 4 hours in length longer than the typical sigmoid colectomy. MD SARKIS Nelson/PHILLIP /[id number] cc: MD Michael Park DO Robert C Quackenbush, MD Copies: MAILE HOLLEY MD, BRYCE DO QUACKENBUSH, ROBERT C MD ~ Electronically Signed By: AMBERLY ISSA MD 05/15/20 1625 PATIENT NAME: TRISTON ALMONTE OPERATIVE REPORT DATE OF : 41 REPORT #: [id number] PHYSICIAN: AMBERLY ISSA MD PCP: MAILE HOLLEY MD REPORT IS CONFIDENTIAL AND NOT TO BE RELEASED WITHOUT AUTHORIZATION
--- NOTE | 2020-05-15 17:23 | NUR ---
PATIENT SITTING UP IN CHAIR. IN ROOM. VITAL SIGNS AND I&O DONE. CALL LIGHT WITHIN REACH. NO OTHER NEEDS AT THIS TIME
--- NOTE | 2020-05-15 18:36 | NUR ---
PT HAS BEEN UP AMBULATING IN HALLS FOUR TIMES TODAY STANDBY ASSIST FWW, TOLERATING REGULAR DIET, SHOWERED TODAY, IV OUT. DRESSING OFF ABD, STERI STRIPS OPEN TO AIR, MARTELL DRAIN OUT TODAY TOLD HER MAYBE HOME TOMORROW.
--- NOTE | 2020-05-15 19:31 | NUR ---
REPORT RECEIVED FROM DAY SHIFT RN. PT LYING IN BED ALERT AND ORIENTED. DENIES PAIN OR NAUSEA. NO NEEDS AT THIS TIME. WHITE BOARD UPDATED. CALL LIGHT IN REACH.
--- NOTE | 2020-05-15 21:25 | NUR ---
CALL LIGHT ANSWERED. PT UP TO BR WITH SBA AND FWW TO VOID 500 ML CLEAR YELLOW URINE AND HAVE SMALL LOOSE BM. BACK TO BED, LANG WELL. EVENING ASSESSMENT COMPLETE. SCHEDULED MEDS ADMINISTERED PER EMAR. PRN ADMINISTERED FOR 6/10 ABD PAIN. MIDLINE INCISION INTACT WITH STERI STRIPS. DRY SEROSANG DRAINAGE NOTED. NO REDNESS NOTED. BOWEL TONES ACTIVE. PT DENIES NAUSEA. SCD'S IN PLACE. NO QUESTIONS OR CONCERNS AT THIS TIME. CALL LIGHT IN REACH.
--- NOTE | 2020-05-15 23:27 | NUR ---
PT RESTING IN BED WITH EYES CLOSED. NO APPARENT DISTRESS.
--- NOTE | 2020-05-16 00:05 | NUR ---
SBA TO THE [place] using own WALKER. PATIENT IS BACK IN BED. SCD'S BACK ON. PATIENT C/O PAIN ON THE RIGHT UPPER QUADRANT POINTED AND STATED NUMBER 6 TO 7. PRIMARY RN NOTIFIED.
--- NOTE | 2020-05-16 00:48 | NUR ---
ROUNDED ON pt. RESTING IN BED ON LEFT SIDE. EYES CLOSED, RESPIRATIONS REGULAR AND UNLABORED. CALL LIGHT WITHIN REACH.
--- NOTE | 2020-05-16 02:08 | NUR ---
PATIENT CALLED TO USE THE BATHROOM. SBA. OWN WALKER. PATIENT C/O PAIN. PRIMARY NOTIFIED. PATIENT IS BACK IN BED. SCD BACK ON. PRIMARY RN WAS WITH PATIENT. CALL LIGHT WITHIN REACH.
--- NOTE | 2020-05-16 02:08 | NUR ---
pt UP TO VOID. REQUESTED PRN PAIN MED FOR 8/10 PAIN. ASSESSMENT DONE. pt NOTED HER ABD IS DISTENDED. MEDICATION GIVEN (SEE MAR). pt RESTING IN BED. CALL LIGHT WITHIN REACH.
--- NOTE | 2020-05-16 02:14 | NUR ---
CALL LIGHT ON. pt REQUESTED PRN FOR RESTLESS LEGS, GIVEN (SEE MAR). CALL LIGHT WITHIN REACH.
--- NOTE | 2020-05-16 03:19 | NUR ---
PATIENT CALLED TO USE THE BATHROOM. PATIENT STATED IT IS ABOUT TIME FOR PAIN MEDICATION. PRIMARY RN WAS WITH PATIENT. SCD ON. CALL LIGHT WITHIN REACH.
--- NOTE | 2020-05-16 03:19 | NUR ---
CALL LIGHT ON pt UP TO VOID. REPORTED 8/10 PAIN, PRN GIVEN (SEE MAR). EDUCATED ON PAIN MANAGEMENT. pt VERBALIZED UNDERSTANDING CALL LIGHT WITHIN REACH.
--- NOTE | 2020-05-16 04:08 | NUR ---
ROUNDED ON pt. RESTING IN BED, EYES CLOSED, RESPIRATIONS REGULAR AND UNLABORED. CALL LIGHT WITHIN REACH.
--- NOTE | 2020-05-16 06:27 | NUR ---
IN TO DO VITALS AND I&O. pt WOKE TO VOICE. REPORTED "I REALLY SLEPT WELL AFTER THOSE PAIN PILLS." NO REQUESTS AT THIS TIME. CALL LIGHT WITHIN REACH.
--- NOTE | 2020-05-16 07:20 | NUR ---
REPORT RECIEVED FROM JEYSON BRADSHAW. PT AWAKE AND SITTING UP IN CHAIR. OFFERED SHOWER, SHE STATES DEFINETLY. STATES SHE IS READY TO GO HOME AND IS EXCITED. DENIES OTHER CONERNS.
--- NOTE | 2020-05-16 07:45 | NUR ---
PATIENT RESTING IN BED. PATIENT TAKES A SHOWER. ONE PERSON ASSISTING WITH WALKER. PATIENT BACKS TO CHAIR. WARM BLANKET PROVIDED. CALL LIGHT WITHIN REACH. NO OTHER NEEDS AT THIS TIME
--- NOTE | 2020-05-16 08:09 | NUR ---
PT JUST GETTING OUT OF SHOWER WITH ANTOLIN CHAHAL. PT STATES SHE FEELS GREAT NOW. GIVEN MORNING MEDS AND MOTRIN 10/07. BACK TO CHAIR FOR BREAKFAST. ASSESTMENT DONE. 1P ASSIST WITH FWW.
--- NOTE | 2020-05-16 09:16 | NUR ---
PATIENT SITTING UP IN CHAIR. IN ROOM. VITAL SIGNS AND I&O DONE. PATIENT ASSISTED TO USE THE BATHROOM. CALL LIGHT WITHIN REACH. NO OTHER NEEDS AT THIS TIME
--- NOTE | 2020-05-16 09:54 | NUR ---
PT UP TO RESTROOM ON OWN AND FWW. AMBULATED WELL. ADMINISTERED NORCO. IN ROOM.
--- NOTE | 2020-05-16 10:00 | NUR ---
Spoke with Franko. She is dressed and waiting for Dr. Gan. States she is going home today. Denies needs. spouse will assist as needed. Will wait and speak with Dr. Gan at her follow up to see if she wants OP therapy. States she is not ready now. Mike present and stating he will provide care. Franko will follow up with in [facility] for eval of further lung cancer.
--- NOTE | 2020-05-16 10:17 | NUR ---
PATIENT SITTING UP IN CHAIR. IN ROOM. PATIENT AMBULATING IN THE HALLWAY, ONE PERSON ASSISTING WITH WALKER. PATIENT BACKS TO CHAIR. CALL LIGHT WITHIN REACH. NO OTHER NEEDS AT THIS TIME
--- NOTE | 2020-05-16 11:33 | NUR ---
PT AMBULATED IN [place].
--- NOTE | 2020-05-16 13:41 | NUR ---
PATIENT SITTING UP IN CHAIR. IN ROOM. VITAL SIGNS AND I&O DONE. WATER GIVEN. CALL LIGHT WITHIN REACH. NO OTHER NEEDS AT THIS TIME
--- NOTE | 2020-05-16 13:52 | NUR ---
ADMINISTERED MOTRIN FOR 6/10 PAIN. PT UP AND DOWN OUT OF CHAIR WALKING AROUND IN ROOM. STATES SHE IS GETTING RESTLESS. RESTING ON SOFA.
--- NOTE | 2020-05-16 14:35 | NUR ---
PT UP WALKING IN [place] WITH JEYSON ANGULO AND .
[2020-05-16] MEDS ORDERED: ACETAMINOPHEN500 MG PO (15:25)
[2020-05-16] MEDS ORDERED: IBUPROFEN600 MG PO (15:25)
--- NOTE | 2020-05-17 17:39 | PATH ---
[facility] [address], [place] [address] Signed SPECIMEN(S): A RECTO-SIGMOID WITH TUMOR SPECIMEN SOURCE: A. RECTO-SIGMOID WITH TUMOR CLINICAL HISTORY: Colon mass. Sigmoid colectomy. 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 - Macroscopic tumor perforation: Not identified. - Tumor extension: Tumor present from mucosal surface into pericolonic adipose tissue. - Margins: All margins uninvolved by carcinoma (proximal, distal, radial margins). - Lymphovascular invasion: Not identified. - Perineural invasion: Not identified. - No evidence of metastatic carcinoma in 17 lymph nodes. - Background colonic mucosa negative for dysplasia. - See comment. COMMENT: The clinical history of metastatic high-grade serous carcinoma status post hysterectomy, bilateral salpingo-oophorectomy, and omentectomy in 2014 is noted. 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 The patient's most recent colon biopsy from 05/05/2020 ([id number]) was reviewed. Sections demonstrate a poorly differentiated epithelioid neoplasm growing in sheets and focal papillary formation situated in the colonic wall extending from the mucosal surface (ulcerated) into the pericolorectal tissue. Mitoses, including atypical forms, are abundant. No surrounding colonic dysplasia is seen. Due to a growth pattern differing from that of the previous biopsy, selected immunohistochemical stains (with appropriately staining controls) were performed. The tumor cells are positive for PAX8, WT-1, and ER with very rare, faint ([id number]) positivity for p53. CDX2 is negative in the tumor cells and highlights the background non-neoplastic PATIENT NAME: FRANKO ALMONTE PATHOLOGY DATE OF : 41 REPORT #: [id number] PHYSICIAN: ELBERT PATHOLOGY PCP: MAILE KAMARA MD REPORT IS CONFIDENTIAL AND NOT TO BE RELEASED WITHOUT AUTHORIZATION [facility] [address], [place] [address] Signed colonic mucosa. The combined morphologic and immunophenotypic profile is compatible with metastatic/recurrent high-grade serous carcinoma. As part of [employer] Quality Improvement Program, this case was reviewed by another member of our pathology staff. NAL:cml:C1NR MICROSCOPIC EXAMINATION: Histologic sections of all submitted blocks are examined by light microscopy. These findings, together with the gross examination, support the pathologic diagnosis. GROSS DESCRIPTION: The specimen, labeled "Franko Almonte," and designated on the requisition "recto-sigmoid with tumor," is received in formalin and consists of one unoriented segment of previously opened large bowel that is 12.5 cm in length and has an average internal circumference of 6.0 cm. The serosal surface is pink focally congested with a black dye discoloration in the area of puckering is present and is inked blue. The radial margin is smooth and intact. Radial margins inked black. The mucosal surface displays a 4.7 x 4.5 x 2.1 cm pink-timmons fungating mass. This mass is 4.5 cm from the closest resection margin, 7.5 cm from the opposite resection margin, 4.6 cm from the vascular root resection margin, and 4.5 cm from the closest radial resection margin. Sectioning through the mass reveals extension into the muscularis propria and abutment of the adjacent pericolonic adipose tissue. Extension into the adipose tissue is not grossly identified. The mass is above the peritoneal reflection, 0.3 cm from the serosal surface. The remaining mucosa is yellow-timmons and finely granular. The large bowel has an average wall thickness of 0.9 cm. Upon dissection of the attached pericolonic adipose tissue multiple possible lymph nodes are grossly identified. One of these lymph nodes is within close proximity of the mesenteric root resection margin. Present on the serosal surface of the mesentery is a white firm nodule that is 0.3 cm in greatest dimension. This nodule is inked green. Approximately 7 cm from the mass, attached to the pericolonic adipose tissue is a 3.6 x 3.5 x 0.7 cm segment of bowel wall. The mucosal surface is pink and finely granular. No discrete mass lesions are grossly identified. Dietitian Helper sections are submitted in 14 cassettes. Cassette summary: PATIENT NAME: FRANKO ALMONTE PATHOLOGY DATE OF : 41 REPORT #: [id number] PHYSICIAN: ELBERT PATHOLOGY PCP: MAILE KAMARA MD REPORT IS CONFIDENTIAL AND NOT TO BE RELEASED WITHOUT AUTHORIZATION [facility] [address], [place] [address] Signed (A1) closest resection margin, shave (A2) opposite resection margin, shave (A3) vascular root resection margin, shave (A4-A5) radial resection margin, perpendicular (A6) one possible lymph node within close proximity of vascular root, bisected and nodule on mesenteric serosal surface (A7-A8) mass to uninvolved bowel wall and adjacent pericolonic adipose tissue (A9) mass to serosa (A10) additional section of mass (A11) four possible lymph nodes, submitted whole and uninvolved bowel wall (A12) six possible lymph nodes, submitted whole (A13) four possible lymph nodes, submitted whole (A14) two possible lymph nodes one inked and bisected the other trisected. FB (under the direct supervision of a pathologist) The Gross Description was prepared using a voice recognition system. The report was reviewed for accuracy; however, sound-alike word errors, addition and/or deletions may occur. If there is any question about this report, please contact Client Services. ADDITIONAL NOTES: Immunohistochemical and/or in situ hybridization studies were performed on this case with the appropriate positive controls that react as expected. This test was developed and its performance characteristics determined by [facility]. It has not been cleared or approved by the U.S. Food and Drug Administration. The FDA has determined that such clearance or approval is not necessary. This test is used for clinical purposes. It should not be regarded as investigational or for research. [facility] is certified under the Clinical Laboratory Improvement Amendments of 1988 (CLIA) as qualified to perform high complexity clinical laboratory testing. PERFORMING LABORATORY: The technical component was performed by [facility], [address] [place] [id number] (Truck Switcher: Karli Vora MD; CLIA# [id number]). [facility], [address] [place] [id number] (CLIA# [id number]). Diagnostician: Ale Mcintosh MD Pathologist PATIENT NAME: FRANKO ALMONTE PATHOLOGY DATE OF : 41 REPORT #: [id number] PHYSICIAN: ELBERT PATHOLOGY PCP: MAILE KAMARA MD REPORT IS CONFIDENTIAL AND NOT TO BE RELEASED WITHOUT AUTHORIZATION [address] [place] [address] Signed Electronically Signed 05/17/2020 Copies: ~ PATIENT NAME: FRANKO ALMONTE PATHOLOGY DATE OF : 41 REPORT #: [id number] PHYSICIAN: ELBERT PATHOLOGY PCP: MAILE KAMARA MD REPORT IS CONFIDENTIAL AND NOT TO BE RELEASED WITHOUT AUTHORIZATION
== END 2020-05-16 15:45 | disposition home or self-care (01) | DRG 330 ==
LOC: MS 05-12 08:33 → DSVR 05-12 08:33 → MS 05-12 09:00
PROVIDERS: ADMIT Surgery; ATTEND Surgery
PROC: 0DNL0ZZ Release Transverse Colon, Open Approach (ICD-10-PCS; 2020-05-12)
PROC: 0DTN0ZZ Resection of Sigmoid Colon, Open Approach (ICD-10-PCS; principal; 2020-05-12 09:30)
DX: C78.5 Secondary malignant neoplasm of large intestine and rectum (principal); C56.2 Malignant neoplasm of left ovary; G89.18 Other acute postprocedural pain; K59.00 Constipation, unspecified; K66.0 Peritoneal adhesions (postprocedural) (postinfection); E66.9 Obesity, unspecified; G25.81 Restless legs syndrome; Z68.28 Body mass index [BMI] 28.0-28.9, adult; Z87.891 Personal history of nicotine dependence; Z79.899 Other long term (current) drug therapy; Z79.1 Long term (current) use of non-steroidal anti-inflammatories (NSAID); Z79.891 Long term (current) use of opiate analgesic; Z85.118 Personal history of other malignant neoplasm of bronchus and lung; Z85.3 Personal history of malignant neoplasm of breast
CPT/HCPCS: 00790; 64488; 76942; 88309; A9270; J0131; J0694; J1100; J1170; J1644; J1885; J2001; J2370; J2405; J2704; J2795; J3010; J7121

== ENCOUNTER 2021-03-09 09:30 | Emergency (ER) | payer MEDICARE, OTHER ==
[~2021-03-09] VITALS: Ht 172.7 cm; Wt 86.2 kg
[~2021-03-09 09:30] MED LIST changes: +CILOSTAZOL50 MG PO
--- OUTSIDE RECORDS SUMMARY | 2021-03-09 09:32 | XMS ---
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 Dick has no Care Guidelines for this patient. Arlene VISIT COUNT (12 MO.) 1 [facility] TOTAL 1 NOTE: Visits indicate total known visits. ED/UCC VISIT TRACKING (12 MO.) 03/09/2021 09:30 [facility] [place] TYPE: Emergency COMPLAINT: - WEAKNESS INPATIENT VISIT TRACKING (12 MO.) 05/12/2020 08:[address] [facility] [place] TYPE: Medical Surgical COMPLAINT: - SIGMOID COLECTOMY DIAGNOSES: - Secondary malignant neoplasm of large intestine and rectum - Peritoneal adhesions (postprocedural) (postinfection) - Personal history of malignant neoplasm of breast - Body mass index [BMI] 28.0-28.9, adult - Obesity, unspecified - Constipation, unspecified - Personal history of malignant neoplasm of breast - Personal history of other malignant neoplasm of bronchus and lung - Restless legs syndrome - Body mass index [BMI] 28.0-28.9, adult - Peritoneal adhesions (postprocedural) (postinfection) - Body mass index [BMI] 28.0-28.9, adult - Personal history of nicotine dependence - Constipation, unspecified - Neoplasm of unspecified behavior of digestive system - Other ocean transportation intermediary (current) drug therapy - ocean transportation intermediary (current) use of opiate analgesic - Malignant neoplasm of left ovary - ocean transportation intermediary (current) use of opiate analgesic - Neoplasm of uncertain behavior of colon - nursing home (current) use of non-steroidal anti-inflammatories (NSAID) - Personal history of other malignant neoplasm of bronchus and lung - Other acute postprocedural pain - Restless legs syndrome - Personal history of nicotine dependence - Malignant neoplasm of left ovary - Other care home (current) drug therapy - Other acute postprocedural pain - Obesity, unspecified - ocean transportation intermediary (current) use of non-steroidal anti-inflammatories (NSAID) - Secondary malignant neoplasm of large intestine and rectum [email or web address]
--- NOTE | 2021-03-09 14:56 | EKG ---
[facility] [address] [facility] [place] [address] Signed Atrial fibrillation with rapid ventricular response with premature ventricular or aberrantly conducted complexes Left anterior fascicular block Abnormal ECG When compared with ECG of 10-MAY-2020 12:44, Atrial fibrillation has replaced Sinus rhythm Vent. rate has increased BY 60 BPM Confirmed by RHEA BOTELLO DO ([id number]) on 03/09/2021 2:56:38 PM Electronically Signed By: RHEA BOTELLO DO 03/09/21 1456 PATIENT NAME: TRISTON ALMONTE Electrocardiogram DATE OF : 41 PHYSICIAN: RHEA BOTELLO DO REPORT #: [id number] REPORT IS CONFIDENTIAL AND NOT TO BE RELEASED WITHOUT AUTHORIZATION
[2021-03-09] MEDS ORDERED: CARDIZEM CD180 MG PO (16:39)
[2021-03-09] MEDS ORDERED: CEPHALEXIN500 MG PO (16:39)
== END 2021-03-09 17:00 | disposition home or self-care (01) ==
LOC: ED 09:30
DX: I48.91 Unspecified atrial fibrillation (principal); N39.0 Urinary tract infection, site not specified; E86.0 Dehydration; R19.00 Intra-abdominal and pelvic swelling, mass and lump, unspecified site; Z20.822 Contact with and (suspected) exposure to COVID-19; K21.9 Gastro-esophageal reflux disease without esophagitis; Z87.891 Personal history of nicotine dependence; Z79.899 Other long term (current) drug therapy; Z85.3 Personal history of malignant neoplasm of breast; Z85.038 Personal history of other malignant neoplasm of large intestine; Z85.43 Personal history of malignant neoplasm of ovary
CPT/HCPCS: 71045; 74177; 80053; 81001; 84484; 85025; 93005; 93010; 96375; 99285-25; C9803; J0696; J7030; Q9967; U0003

== ENCOUNTER 2021-03-27 10:14 | Inpatient (IN) | payer MEDICARE, OTHER ==
[~2021-03-27] VITALS: Ht 172.7 cm; Wt 76.2 kg
[~2021-03-27 10:14] MED LIST changes: +CARDIZEM CD180 MG PO
--- OUTSIDE RECORDS SUMMARY | 2021-03-27 10:16 | XMS ---
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 Arlene VISIT COUNT (12 MO.) 2 [facility] TOTAL 2 NOTE: Visits indicate total known visits. ED/UCC VISIT TRACKING (12 MO.) 03/27/2021 10:[address] [facility] [place] TYPE: Emergency COMPLAINT: - RAPID HEART RATE, SOB. WEAKNESS 03/09/2021 09:[address] [facility] [place] TYPE: Emergency COMPLAINT: - WEAKNESS DIAGNOSES: - Personal history of other malignant neoplasm of large intestine - Personal history of nicotine dependence - Unspecified atrial fibrillation - Personal history of malignant neoplasm of ovary - Gastro-esophageal reflux disease without esophagitis - Shortness of breath - Other senior care (current) drug therapy - Urinary tract infection, site not specified - Intra-abdominal and pelvic swelling, mass and lump, unspecified site - Personal history of malignant neoplasm of breast - Dehydration INPATIENT VISIT TRACKING (12 MO.) 05/12/2020 08:[address] [facility] [place] TYPE: Medical Surgical COMPLAINT: - [...] unspecified behavior of digestive system - Other termite control servicer (current) drug therapy - lobsterman (current) use of opiate analgesic - Malignant neoplasm of left ovary - lobsterman (current) use of opiate analgesic - Neoplasm of uncertain behavior of colon - lobsterman (current) use of non-steroidal anti-inflammatories (NSAID) - Personal history of other malignant neoplasm of bronchus and lung - Other acute postprocedural pain - Restless legs syndrome - Personal history of nicotine dependence - Malignant neoplasm of left ovary - Other termite control servicer (current) drug therapy - Other acute postprocedural pain - Obesity, unspecified - lobsterman (current) use of non-steroidal anti-inflammatories (NSAID) - Secondary malignant neoplasm of large intestine and rectum [email or web address]
--- NOTE | 2021-03-27 11:42 | NUR ---
Both nares swabbed for Covid-19 without complication. Taken to lab. Rapid PCR sample taken to [facility] lab
--- NOTE | 2021-03-27 15:30 | NUR ---
PATIENT ASSESSMENT COMPLETE. MEDICATIONS GIVEN ORDERED. PATIENT IS ALERT AND ORIENTED X4. OXYGEN SATURATION IS 97% ON TWO LITER OF OXYGEN. BREATHING IS EQUAL AND UNLABORED. LUNG SOUNDS ARE FINE CRACKLES IN THE UPPER LOBES AND DIMINISHED IN THE LOWER LOBES. HEART RATE IS 96 BPM. RYHTHM IS ATRAIL FIBRILLATION. URINE OUTPUT IS YELLOW AND CLEAR. BM TODAY AND ACTIVE BOWEL TONES. PATIENT UPDATED ON PLAN OF CARE. CALL LIGHT WITHIN REACH NO FUTHER NEEDS.
--- NOTE | 2021-03-27 19:45 | NUR ---
SHIFT REPORT RECEIVED FROM JEYSON ARMSTRONG. IN TO INTRODUCE SELF TO PT. PT CURRENTLY ON 2L O2 VIA NC. CARDIZEM DRIP INFUSING AT 2.5 MG/HR. PT CURRENTLY WATCHING TV IN BED, DENIES NEEDS AT THIS TIME. CALL LIGHT WITHIN REACH.
--- NOTE | 2021-03-27 20:55 | NUR ---
ASSESSMENT COMPLETED. PT IS ALERT/ORIENTED. REPORTS 5/10 PAIN TO ABDOMEN AND LOW BACK RELATED TO HER CANCER, 1 TAB NORCO GIVEN. LUNGS CLEAR/DIM, 2L O2 VIA NC IN PLACE. HR IRREGULAR, RATE 80-100, CARDIZEM DRIP CONTINUES AT 2.5MG/HR. BOWEL TONES ACTIVE, DENIES NAUSEA. PT UP TO BSC WITH 1-PA TO VOID 100ML AND THEN BACK TO BED. PT UNSTEADY ON FEET, PT REPORTS THAT SHE HAS NEUROPATHY IN BLE AND HAS "BAD BALANCE." 1+ EDEMA NOTED IN BLE. IV SITE INTACT. PT DENIES NEED FOR SINEMET TONIGHT, STATES SHE ONLY TAKES PRN FOR RESTLESS LEGS. NO FURTHER REQUESTS/COMPLAINTS AT THIS TIME, CALL LIGHT WITHIN REACH.
--- NOTE | 2021-03-27 22:50 | NUR ---
PT APPEARS TO BE SLEEPING AT THIS TIME, NO APPARENT DISTRESS. RESPIRATIONS EVEN AND UNLABORED, 2L O2 VIA NC REMAINS IN PLACE. CARDIZEM DRIP CONTINUES AT 2.5 MG/HR. VITAL SIGNS STABLE.
--- NOTE | 2021-03-27 23:00 | NUR ---
CARDIZEM DRIP TITRATED TO 5MG/HR FOR HR 100-120, BRIEFLY 133. PT CONTINUES TO SLEEP, NO APPARENT DISTRESS.
--- NOTE | 2021-03-28 00:27 | NUR ---
PT CONTINUES TO SLEEP, NO APPARENT DISTRESS. RESPIRATIONS EVEN AND UNLABORED, 2L O2 VIA NC IN PLACE. HR REMAINS IN A.FIB PER MONITOR RATE 90-110'S, CARDIZEM DRIP CONTINUES TO INFUSE AT 5MG/HR. WILL ALLOW FOR REST, CALL LIGHT IS WITHIN REACH.
--- NOTE | 2021-03-28 02:11 | NUR ---
CARDIZEM DRIP TITRATED TO 7.5MG/HR FOR HR CONSISTENTLY 100-115. PT CONTINUES TO SLEEP, NO APPARENT DISTRESS. 2L O2 VIA NC IN PLACE, RESPIRATIONS EVEN AND UNLABORED.
--- NOTE | 2021-03-28 03:09 | NUR ---
CALL LIGHT ANSWERED. PT UP TO BSC WITH 1-PA TO VOID. PT REMAINS UNSTEADY ON FEET AND IS DYSPNEIC WITH ACTIVITY. WHILE OUT OF BED, HR INCREASED TO 140 AT THE HIGHEST, BUT RETURNED TO 90-110 ONCE BACK IN BED. CARDIZEM REMAINS AT 7.5MG/HR. PT ASSISTED TO REPOSITION ONTO LEFT SIDE. NO FURTHER REQUESTS AT THIS TIME, CALL LIGHT WITHIN REACH.
--- NOTE | 2021-03-28 03:36 | NUR ---
CALL LIGHT ANSWERED. PT REPORTS THAT HER PAIN IS STARTING TO INCREASE IN HER ABDOMEN AND LOW BACK, SPREADING DOWN HER LEGS. PRN NORCO GIVEN AT THIS TIME. CARDIZEM DRIP ALSO TITRATED FOR HR 100-120'S. PT DENIES FURTHER NEEDS AT THIS TIME, CALL LIGHT WITHIN REACH.
--- NOTE | 2021-03-28 05:31 | NUR ---
PT AWOKEN BY CERTIFIED RETINAL ANGIOGRAPHER FOR MORNING LABS. ASSESSMENT COMPLETED. PT DENIES PAIN AT THIS TIME. LUNGS REMAIN DIM IN BASES, 2L O2 VIA NC IN PLACE. HR IRREGULAR, CARDIZEM DRIP AT 10 MG/HR. BOWEL TONES ACTIVE. MILD EDEMA REMAINS IN BLE. IV SITE INTACT. PT DENIES NEEDS AT THIS TIME, CALL LIGHT WITHIN REACH.
--- NOTE | 2021-03-28 07:42 | NUR ---
REPORT RECIEVED. PATIENT IS ASLEEP. NO DISTRESS NOTED. CARDIZEM 10 MG IV INFUSING. HR 90-120.
--- NOTE | 2021-03-28 07:50 | NUR ---
DR. LINDO HERE TO SEE PATIENT, ORDERS RECIEVED.
--- NOTE | 2021-03-28 08:00 | NUR ---
ASSESSMENT DONE. VERY SHORT OF BREATH WITH EXERTION. DENIES CHEST PAIN. ROUTINE MEDICATIONS GIVEN. TALKED WITH PATIENT ABOUT POC FOR DAY, INDICATES UNDERSTANDING. LASIX 40 MG IV GIVEN.
--- NOTE | 2021-03-28 09:16 | NUR ---
1PA TO BSC FOR VOID, BACK TO BED. CALL LIGHT INREACH, IMAGING AND S/OIN ROOM AT THIS TIME.
--- NOTE | 2021-03-28 09:56 | NUR ---
ECHO COMPLETE. CONTINUES TO REFUSE BREAKFAST. GETS VERY SONB WITH ANY EXERTION.
--- NOTE | 2021-03-28 11:30 | NUR ---
NEW IV SITE STARTED TO RH. CARDIZEM GTT INFUSING TO RIGHT HAND AT 5 MG/HR. SISTER IS IN ROOM.
--- NOTE | 2021-03-28 11:37 | NUR ---
CONVERTED TO SR WITH FREQUENT PVC'S.
--- NOTE | 2021-03-28 11:45 | NUR ---
CARDIZEM GTT TO OFF.
--- NOTE | 2021-03-28 12:00 | NUR ---
ASSESSMENT DONE. PATIENT STATES SHE FEELS BETTER. SITTING AT BEDSIDE TO TAKE LUNCH.
--- NOTE | 2021-03-28 12:30 | NUR ---
UP TO COMMODE TO EXPELL URINE AND STOOL, BACK TO BED W/O INCIDENT. PTIENT STATES SHE IS LESS SHORT OF BREATH WITH MOVEMENT NOW.
--- NOTE | 2021-03-28 12:41 | NUR ---
WISHES TO NAP AT THIS TIME. IN ROOM.
[2021-03-28] MEDS ORDERED: LYNPARZA150 MG PO (12:59)
--- NOTE | 2021-03-28 16:37 | NUR ---
PATIENT AWAKE IN CHAIR, S/O IN ROOM. VITALS CHARTED, CALL LIGHT IN REACH
--- NOTE | 2021-03-28 17:35 | EKG ---
[facility] [address] [facility] [place] [address] Signed Accelerated Junctional rhythm with premature supraventricular complexes Left anterior fascicular block Abnormal ECG When compared with ECG of 09-MAR-2021 09:39, Junctional rhythm has replaced Atrial fibrillation Confirmed by NOEMI LINDO MD ([id number]) on 03/28/2021 5:35:09 PM Electronically Signed By: NOEMI LINDO MD 03/28/21 1735 PATIENT NAME: SUZYTRISTON VILLA Electrocardiogram DATE OF : 41 PHYSICIAN: NOEMI LINDO MD REPORT #: [id number] REPORT IS CONFIDENTIAL AND NOT TO BE RELEASED WITHOUT AUTHORIZATION
--- NOTE | 2021-03-28 18:07 | NUR ---
PATIENT USED CALL LIGHT FOR ASSISTANCE TO BSC AND BACK TO BED FOR THE NIGHT. CALL LIGHT IN EASY REACH, NO OTHER NEEDS AT THIS TIME
--- NOTE | 2021-03-28 18:41 | NUR ---
DR. LINDO UPDATED OV PATIENT. NO FUTHER ORDERS AT THIS TIME.
--- NOTE | 2021-03-28 19:42 | NUR ---
SHIFT REPORT RECEIVED FROM JEYSON BRIGGS. IN TO CHECK ON PT WHO IS RESTING IN BED AND STATES SHE IS TIRED. DENIES PAIN AT THIS TIME. WHILE DOZING, SPO2 DESATS TO 84-86%, INCREASED OXYGEN TO 4L NC.
--- NOTE | 2021-03-28 20:30 | NUR ---
ASSESSMENT COMPLETED. PT IS ALERT/ORIENTED, DENIES PAIN AT THIS TIME. LUNGS CLEAR, DIM IN BASES. OXYGEN TITRATED TO 4L FOR SPO2 86% ON 2L. HR REGULAR, OCCASIONAL PVC'S NOTED ON MONITOR. BOWEL TONES ACTIVE, DENIES NAUSEA. SKIN GROSSLY INTACT, MILD EDEMA PRESENT IN BLE. IV SITE INTACT AND PATENT. PT DENIES NEEDS AT THIS TIME. CALL LIGHT WITHIN REACH.
--- NOTE | 2021-03-28 22:01 | NUR ---
PT UP TO BSC WITH SBA TO VOID AND THEN BACK TO BED. PT REPORTS SOB WITH ACTIVITY. ABLE TO TITRATE OXYGEN TO 3L FOR SPO2 OR 98% AT REST. PRN NORCO GIVEN FOR 3/10 ABDOMINAL/BACK PAIN, PRN MELATONIN GIVEN PER REQUEST. PT DENIES FURTHER NEEDS AT THIS TIME, CALL LIGHT WITHIN REACH.
--- NOTE | 2021-03-28 23:48 | NUR ---
PT SLEEPING AT THIS TIME, NO APPARENT DISTRESS. OXYGEN INCREASED TO 5L FOR SPO2 85-86%, PT APPEARS TO BE BREATHING THROUGH MOUTH. HR REMAINS IN SINUS RHYTHM WITH OCCASIONAL PVC'S PER MONITOR, RATE 80-90'S. WILL ALLOW FOR REST AT THIS TIME, CALL LIGHT WITHIN REACH.
--- NOTE | 2021-03-29 02:02 | NUR ---
PT CONTINUES TO SLEEP, NO APPARENT DISTRESS. 5L O2 VIA NC REMAINS IN PLACE. VITAL SIGNS STABLE. WILL ALLOW FOR REST AND CONTINUE TO MONITOR.
--- NOTE | 2021-03-29 04:00 | NUR ---
PT CONTINUES TO SLEEP, NO APPARENT DISTRESS. RESPIRATIONS EVEN AND UNLABORED, 5L O2 VIA NC REMAINS IN PLACE. VITAL SIGNS STABLE.
--- NOTE | 2021-03-29 05:28 | NUR ---
patient up to the bsc, 1pa. patient tolerates activity well. 100mls concentrated urine noted. patient returned to bed. prn norco provided.
--- NOTE | 2021-03-29 05:34 | NUR ---
ASSESSMENT COMPLETED. LUNGS REMAIN DIM IN BASES, 5L O2 VIA NC IN PLACE. PT REPORTS FEELING WINDED AFTER RETURNING TO BED FROM BSC. HR REMAINS IN SINUS RHYTHM WITH PVC'S PER MONITOR, DENIES CHEST PAIN. NO OTHER CHANGES FROM PREVIOUS ASSESSMENT. PT DENIES REQUESTS, CALL LIGHT WITHIN REACH.
--- NOTE | 2021-03-29 11:00 | NUR ---
PASTOR PENG IN TO SEE PATIENT.
[2021-03-29] MEDS ORDERED: VENTOLIN HFA18 GM INH (11:04)
--- NOTE | 2021-03-29 11:20 | NUR ---
PATIENT RESTING IN BED, WOKE TO VOICE. PATIENT GIVEN BEDBATH, PATIENT ABLE TO TO ASSIST WITH BATH. BACK TO BED, GRANDSON IN TO VISIT. CALL LIGHT IN REACH, NO OTHER NEEDS AT THIS TIME
--- NOTE | 2021-03-29 11:25 | NUR ---
AT ABOUT 1046 THIS PT WENT INTO A-FIB RATE CONTROLED. CALLED TO UPDATE. SHE PUT IN AN ORDER FOR AN ADDITIONAL DOSE ONE TIME OF 30 MG PO CARDIZEM. PT DENIES SYMPTOMS, TAKES PO MED EASILY.
--- NOTE | 2021-03-29 12:10 | NUR ---
PT GIVEN HER LUNCH, ASSISTED TO SIT UP HIGHER IN BED. PT IS ALERT AND ORIENTED X4. PT DENIES NAUSEA AND SOB, SHE DOES REPORT 7/10 BILAT LEG PAIN DUE TO RESTLESS LEG SYNDROME. PT GIVEN ONE TAB 10/325 NORCO. VITALS ARE WNL. PT HAS CALL LIGHT WITHIN REACH, AND DENIES ANY OTHER NEEDS AT THIS TIME.
--- NOTE | 2021-03-29 12:33 | NUR ---
PT ALERT, ORIENTED AND SEMED PLEASED WITH MY PRESENCE. HAD GOOD VISIT, PT SEEMS TO BE DEALING APPROPRIATELY, ALL QUESTIONS ASKED ANSWERED. PT DID REQUEST PRAYER. WILL FOLLOW NEEDED
--- NOTE | 2021-03-29 12:41 | NUR ---
REPORT RECEIVED FROM JEYSON INIGUEZ. AWAITING PTS ARRIVAL TO UNIT.
[2021-03-29] MEDS ORDERED: VITAMIN D325 MCG PO (13:09)
[2021-03-29] MEDS ORDERED: MAGOX 400400 MG PO (13:09)
[2021-03-29] MEDS ORDERED: VITAMIN A10000 UNI2 PO (13:09)
--- NOTE | 2021-03-29 13:11 | NUR ---
MED REC COMPLETE
--- NOTE | 2021-03-29 14:05 | NUR ---
DR LINDO CONSULTED REGARDING PTS CHEST X-RAY, OXYGEN NEED AND POSSIBLE FLUID RESTRICTION. DR. LINDO STATES NO FLUID RESTRICTION AT THIS TIME BUT GIVES VERBAL ORDER FOR LASIX AND POTASSIUM. ORDERS ENTERED. CONTINUE TO AWAIT PTS ARRIVAL TO MED/SURG.
--- NOTE | 2021-03-29 14:05 | NUR ---
full report given to Nancy BENÍTEZ via the phone, all questions answered.
--- NOTE | 2021-03-29 14:20 | NUR ---
PT TRANSFERED TO ROOM 113 VIA THE BED, ALL PERSONAL BELONGINGS INCLUDING HER SIGNIFICANT OTHER WENT WITH PT. PT LANG MOVE WELL. KEV BENÍTEZ IN THE ROOM FOR HANDOFF.
--- NOTE | 2021-03-29 14:24 | NUR ---
PT ARRIVED TO MED/SURG BY BED. PTS SIGNIFICANT OTHER, AL, WITH PT AND PARTICIPATING IN CARES. PT DENIES PAIN AND NAUSEA STATING "I DON'T FEEL ANYTHING." LUNG SOUNDS CLEAR. PT ON ROOM AIR AT THIS TIME. WITH OXYGEN SATURATIONS 89-92%. PT DEMONSTRATES USE OF I.S. REACHING 750ML X6. PT ON TELEMETRY MONITORING WITH AFIB RATE IN 80-90'S. +1 EDEMA TO BLE CONTINUES, SEE MAR FOR MEDICATION GIVEN. VALERIE TONES HYPOACTIVE. REDNESS NOTED TO LEFT FORARM, OLD IV SITE INFILTRATION PER JEYSON INIGUEZ. HEAT PACK OFFERED, PT DECLINES. PT RESTING IN BED, SNACK ORDERED FOR PT. PTS SIGNIFICANT OTHER AT BEDSIDE. NO ADDITIONAL REQUESTS OR COMPLAINTS. CALL LIGHT WITHIN REACH.
--- NOTE | 2021-03-29 15:19 | NUR ---
THIS RN TO ROOM TO CHECK ON PT. PT TALKING WITH FRIEND ON PHONE. TELEMETRY [place] CONTINUES TO SHOW AFIB RHYTHEM, HR CURRENTLY 107, RATES BETWEEN 80-120. PT DENIES PAIN AND NAUSEA. NO ADDITIONAL REQUESTS OR COMPLAINTS. CALL LIGHT WITHIN REACH. BED RAILS UP.
--- NOTE | 2021-03-29 15:44 | NUR ---
PT TRANSFERED FROM CCU THIS SHIFT, HERE FOR AFIB RVR. PT UP WITH STAND BY ASSIST AND FRONT WHEEL WALKER TO USE RESTROOM AND TO CHAIR. PT TOELRATIGN 2GM SODIUM DIET WITH MINIMAL TO MODERATE APPITITE, SNACKS PROVIDED. TELEMETRY MONITORING SHOWS AFIB WITH RATES BETWEEN 80-120. ADDITIONAL DOES OF CARTIZEM GIVEN THIS MORNING IN CCU FOR INCREASED RATES. PT WEANED TO ROOM AIR WHILE ON MED/SURG. REPORT STATES PT WILL NEED 2L O2 WITH ACTIVITY AND WHILE SLEEPING, WILL CONTINUE TO MONITOR. +1 EDEMA CONTINUES IN BLE. IV LASIX AND POTASSIUM REPLACEMENT GIVEN THIS SHIFT. PRN PAIN MEDIACTION GIVEN FOR CHRONIC CANCER RELATED PAIN. PT/OT, PT ABLE TO AMBULATE WELL. PTS SIGNIFICANT OTHER AT BEDSIDE, ASSISTS WITH CARES. PT VOIDING QUANTITY SUFFICIENT AND MAKES NEEDS KNOWN. PT USES CALL LIGHT APPROPRATILY AND MAKES NEEDS KNOWN.
--- NOTE | 2021-03-29 16:25 | NUR ---
HILLARY DANGELO, REPORTS PT HAS HAD A BLOODY NOSE. THIS RN TO ROOM. PT REPORTS SHE PICKED HER NOSE AND TOOK A SCAB OFF AND THEN IT STARTED BLEEDING. 3 TISSUES WITH SMALL SPOTS OF BLOOD NOTED AT BEDSIDE. NOSE BLEED HAS STOPPED BY THIS TIME. PT DENIES ADDITIONAL CONCENS. PT DENEIS PAIN AND NAUSEA. STAND BY ASSIST BACK TO BED. NO ADDITIONAL REQUESTS OR COMPLAINTS, CALL LIGHT WITHIN REACH. SIGNIFICANT OTHER AT BEDSIDE, BED RAILS UP.
--- NOTE | 2021-03-29 16:42 | NUR ---
SPOKE WITH PATIENT AND IN ROOM. THEY LIVE IN APARTMENT IN [place] WHICH IS FOR LOW INCOME. STATE THEY DOWNSIZED AND MOVED THERE. PATIENT DOES NOT DRIVE. HE DRIVES HER TO APPOINTMENTS. THEY ARE RETIRED. NO STEPS. PATIENT HAS BOTH 4WW AND FWW. PATIENT HAS NOT SEEN SUGGESTED PCP AT [facility] SINCE DR KAMARA RETIRED. SHE STATES "MOST OF MY STUFF IS DONE THROUGH DR FRAGA" WHO TREATS HER CANCER. I ENCOURAGED HER TO KEEP A PCP IN CASE THERE WOULD BE NEEDS THE [facility]ER CENTER CAN'T COVER. THEY STATE THEY LIVE ON LIMITED INCOME BUT HAVE ENOUGH FOR MEDS/FOOD/UTILITIES. HE STATES HE GETS SNAP BENEFITS FOR FOOD AND THEY "CAN'T EAT ENOUGH TO USE IT ALL". SHE PLANS TO RETURN HOME AT DISCHARGE. THEY CANNOT THINK OF ANYTHING THEY NEED AT THIS TIME. SHE STATES "I MAY NEED A W/C SOMEDAY". SHE DOESN'T WANT TO START USING ONE UNTIL SHE REALLY NEEDS IT. SHE STATES THEY WILL PROBABLY BORROW FROM [facility] IF THEY DO. SHE FEELS SHE HAS GREAT SUPPORT AND HELP WITH [employer]. DISCUSSED TO LET STAFF KNOW IF THEY THINK OF ANYTHING NEEDED. SHE STATES SHE MISSES HER LITTLE DOG. THEY BOTH TALKED FOR SOMETIME ABOUT THIER DOG LUDIVINA. LET STAFF KNOW THEY MIGHT OFFER TO LET HER DOG COME FOR A VISIT.
--- NOTE | 2021-03-29 17:30 | NUR ---
THIS RN TO ROOM TO CHECK ON PT. PT REPORTS 5/10 HEADACHE WITH AMBULATION "THAT WON'T GO AWAY." PT ALSO REPORTS 5/[address] LINDO CONSULTED REGARDING 1699 XERALTO, HEADACHE, AND BLOODY NOSE. MD STATES TO GIVE NORCO EARLY (AT THIS TIME) AND HOLD BLOOD THINNER UNTIL HEADACHE RESOLVES AT WHICH POINT BLOOD THINNER CAN BE REEVALUATED. ALSO TO ENCOURAGE PT TO GET UP OUT OF BED TO CHAIR. NORCO GIVEN (SEE MAR). STAND BY ASSIST UP TO CHAIR. WARM BLANKET PROVIDED. NO ADDITIONAL REQUESTS OR COMPLAINTS. CHAIR ALARM ON, CALL LIGHT WITHIN REACH.
--- NOTE | 2021-03-29 18:42 | NUR ---
PT CALL LIGHT ON. PT REQUESTS ASSISTANCE UP TO USE RESTROOM. PT VOIDS WITHOUT ISSUE, MISSED HAT, UNMEASURED. STAND BY ASSIST WITH FRONT WHEEL WALKER BACK TO BED. PT REPORTS HEADACHE HAS RESOLVED, LEG PAIN NOW AT 07/09. CONTACTED AND STATES NOW OK TO GIVE EVENING XERALTO DOSE. MEDICATION GIVEN (SEE MAR). PT RESTING IN BED WITH HEAD OF BED ELEVATED TO 11 DEGREES. PT DENIES ADDITIONAL REQUESTS OR COMPLAINTS. CALL LIGHT WITHIN REACH. BED RAILS UP.
--- NOTE | 2021-03-29 19:51 | NUR ---
RECEIVED REPORT FROM DAY SHIFT RN. PATIENT IS RESTING IN BED WATCHING TV. PATIENT DENIES ANY NEEDS. CALL LIGHT IN REACH.
--- NOTE | 2021-03-29 21:45 | NUR ---
PATIENT ASSESMENT COMPLETED. PATIENTS SCHEDULED MEDICATIONS GIVEN PER ORDER. PATIENT GIVEN PRN MELATONIN PER ORDER AND PATIENT REQUEST. PATIENT WOULD LIKE PAIN MEDICATION WHEN NEXT AVAILABLE. DISCUSSED PLAN OF CARE FOR PAIN. PATIENT VERBALIZED UNDERSTANDING. PATIENT IS SL AND IV FLUSHES WELL. NO FURTHER NEEDS NOTED. CALL LIGHT IN REACH.
--- NOTE | 2021-03-30 00:21 | NUR ---
PATIENT REPORTS 8/10 PAIN IN HER ABD. PATIENT GIVEN PRN PAIN MEDICATION PER ORDER. PATIENT ASSISTED TO REPOSITION ON HER SIDE. PATIENT DENIES ANY FURTHER NEEDS. CALL LIGHT IN REACH.
--- NOTE | 2021-03-30 02:59 | NUR ---
PATIENT IS RESTING IN BED WITH EYES CLOSED, RR 14. TELE #7, HR 90. CALL LIGHT IN REACH.
--- NOTE | 2021-03-30 06:14 | NUR ---
PATIENTS VITALS TAKEN AND RECORDED. PATIENT GIVEN PRN PAIN MEDICATION FOR 6/10 PAIN IN HER ABD. PATIENT ASSISTED TO THE RESTROOM A SBA W/FWW. PATIENT WAS ABLE TO VOID. PATIENTS DAILY WEIGHT TAKEN AND RECORDED. INTAKE AND OUTPUT RECORDED. PATIENT IS NOW UP TO RECLINER. PATIENT REPORTS SOB. PATIENT PLACED ON 2L VIA NC AND OXYGEN SATURATION IS WNL. PATIENT DENIES ANY FURTHER NEEDS. CALL LIGHT IN REACH.
--- NOTE | 2021-03-30 07:06 | NUR ---
REPORT RECEIVED FROM JEYSON MCLEAN. PT UP TO CHAIR WATCHING TV. PT REPORTS 0/10 PAIN AND DENIES NAUSEA. PT REMAINS ON 2L O2 BY VA WITH OXYGEN SATURATION OF 94%. TELEMETRY MONITORING SHOWS AFIB RHYTHEM WIHT HEART RATE 80-90'S. PT REQUESTS COFFEE, PROVIDED, NO ADDITIONAL REQUESTS OR COMPLAINTS. CALL LIGHT WITHIN REACH.
--- NOTE | 2021-03-30 07:36 | NUR ---
MORNING ASSESSMENT AND MEDICATION DUE. PT UP TO CHAIR. PT CONTINUES TO DENY PAIN AND NAUSEA. IV WNL, NO S/S OF PHLEBITIS NOTED. FLUSHED AND SALINE LOCKED PER PROTOCOL. PT REMAINS ALERT AND ORIENTED. PT PT REPORTS GENERALIZED WEAKNESS CONTINUES. PT ABLE TO AMBULATE WITH STAND BY ASSIST AND FWW BUT UNSTEADY ON FEET AT TIMES. LUNG SOUNDS CLEAR. PT REMAINS ON 2L O2 BY NC WITH OXGYEN SATURATIONS ABOVE 90%. PT REPORTS OXGYEN NEED IS NOT BASELINE. OCCATIONAL COUGH NOTED. TELEMTRY SHOWS NORMAL SINUS RHYTHEM WITH OCCATIONAL PVC'S AT THIS TIME. HEART RATE 80'S. BILATERAL LOWER EXTREMITIY EDEMA IMPROVING, NOW TRACE EDEMA NOTED. PT DENIES ABDOMINAL TENDERNESS AT THIS TIME. PT TALKING WITH SIGNIFICANT OTHER. MEDICATIONS GIVEN. PT DENIES ADDITIONAL REQUESTS OR COMPLAINTS. CALL LIGHT JACOB BENAVIDEZ.
--- NOTE | 2021-03-30 10:26 | NUR ---
PATIENT IS DECONDITIONED. SHE IS ALSO ON A 2 GRAM SODIUM DIET FOR HER HISTORY OF CHF. HER IS IN THE ROOM VISITING. PATIENT DOESN'T EVER REMEMBER BEING TOLD TO FOLLOW A LOW-SODIUM DIET BEFORE. SHE STATES SHE DOES LIKE POTATO CHIPS. SHE USUALLY EATS YOGURT AND MAYBE SOME FRUIT FOR A LATE BREAKFAST. 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 SHE DOES NOT LIKE CANNED VEGGIES, SHE USES FROZEN VEGGIES A LOT. I EXPLAINED THAT A LOW-SODIUM DIET IS CLOSER TO 2,000 MG FOR THE WHOLE DAY AND THIS INCLUDES WHAT IS IN FOOD AND WHAT IS ADDED TO FOOD. I ENCOURAGED HER TO KEEP HER DINNER MEALS TO 600 MG SODIUM AT HOME. I GAVE HER A FOLDER THAT INCLUDES A LOW-SODIUM GROCERY LIST, LOW-SODIUM MENU, LOW-SODIUM DEFINITIONS, AND WAYS TO FLAVOR FOODS WITHOUT ADDING SALT. 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
--- NOTE | 2021-03-30 10:30 | NUR ---
THIS RN TO ROOM TO CHECK ON PT. PT VISITING WITH AL, SIGNIFICANT OTHER. PTS DOG TO BEDSIDE FOR VISIT AND PET THERAPY. PT REPORTS NEED TO VOID. STAND BY ASSIST WITH FWW UP TO RESTROOM. PT VOIDS 100ML CLEAR YELLOW URINE AND MISSES HAT FOR PART OF VOID. RENE, PHYSICAL THERAPIST TO BEDSIDE TO WORK WITH PT. PT UP TO WORK AMBULATE WITH PHSYICAL THERAPY. NO ADDITIONAL REQUESTS OR COMPLAINTS.
[2021-03-30] MEDS ORDERED: XARELTO10 MG PO (11:23)
[2021-03-30] MEDS ORDERED: DILTIAZEM 24HR240 M1 PO (11:23)
--- NOTE | 2021-03-30 12:08 | NUR ---
DR LINDO IN WITH PT. JEYSON ANGULO FEELS PT IS IMPROVING. WILL CONTINUE TO FOLLOW
--- NOTE | 2021-03-30 12:11 | NUR ---
THIS RN TO ROOM TO CHECK ON PT. PT FINISHED WITH DINNER. PT REPORTS 8/10 PAIN IN FEET AND LEGS. SEE MAR FOR MEDICATION GIVEN. STAND BY ASSIST UP TO RESTROOM, PT VOIDS SMALL 50ML DARK YELLOW URINE. PT PERFORMS SELF SAMM CARE. STAND BY ASSIST BACK TO BED. PT REPORTS NEED FOR NAP. NO ADDITIONAL REQUESTS OR COMPLAINTS. CALL LIGHT WITHIN REACH. BED RAILS UP.
--- NOTE | 2021-03-30 13:33 | NUR ---
AFTERNOON ASSESSMENT AND MEDICATION DUE. THIS RN TO ROOM. PT RESTING IN BED AND WATCHING TV. PT AGREES TO A SHOWER. PT UP FOR SHOWER WITH 1 PERSON ASSIST BY THIS RN. SHAMPOO, SHOWER, FRESH UNDERWARE, SOCKS, AND GOWN APPLIED. STAND BY ASSIST BACK TO BED. PT REMAINS ON 2L O2 BY MA FOR SHOWER AND WITH ACTIVITIES. OXYGEN SATURATIONS REMAIN ABOVE 90% ON 2L O2 BY NC. ASSESSMENT DONE: PT REPORTS 3/ "DISCOMFORT" IN FEET AND LEGS STATING "I ALWAYS HAVE A LITTLE DISCOMFORT AND IT'S FINE FOR NOW." PT REMAINS ALERT AND ORIENTED TO ALL, NEUROPATHY PER BASELINE. TELEMETRY CONTINUES TO SHOW NORMAL SINUS RHYTHEM IN THE 80'S WITH OCCATIONAL PVC'S. LUNG SOUNDS CLEAR, DEMINISHED IN BASES WITH OCCATIONAL PRODUCTIVE COUGH, CLEAR SPUTUM NOTED. PT DEMONSTRATES USE OF I.S. X5 REACHING 900ML. TRACE EDEMA CONTINUES IN BLE. PT REPORTS SHE HAD A BOWEL MOVEMENT YESTERDAY AND DENIES CONSTIPATION AT THIS TIME. DECLINES MEDICATIONS. PT RESTING IN BED WATCHING TV. NO ADDITIONAL REQUESTS OR COMPLAINTS. CALL LIGHT WITHIN REACH. BED RAILS UP.
--- NOTE | 2021-03-30 17:49 | NUR ---
IN TO ADMISNTMEY JACOB. PT SITTING UP IN CHAIR WITH BY SIDE. PT REPORTING PAIN 6/10 FROM WASTE DOWN. ALSO REPORTIG HEADACHE ON RIGHT SIDE. PRN PAIN MEDICAITON ADMISNTERED. CALL LIGHT IN AND PERSONAL ITEMS WITHIN REACH.
--- NOTE | 2021-03-30 18:03 | NUR ---
THIS RN TO ROOM TO CHECK ON PT. PT REPORTS NEED TO USE THE RESTROOM. STAND BY ASSIST WITH FWW UP TO RESTROOM. PT VOIDS WITHOUT ISSUE. PT PERFORMS SELF SAMM CARE. STAND BY ASSIST WITH FRONT WHEEL WALKER BACK TO BED. PT REPROTS FEELING "GOOD BUT STILL REALLY TIRED." PT REMAINS ON 2L O2 BY NC WITH OXGYEN SATURATIONS IN THE LOW 90'S. TELEMETRY MONITORING REMAINS IN NORMAL SINUS RYTHEM WITH HEART RATE IN THE 80'S, 90'S WITH AMBULATION. PT REPORTS PAIN IS IMPROVING NOW 5/10. PT RESTING IN BED AND WATCHING TV. BED RAILS UP. CALL LIGHT WITHIN REACH.
--- NOTE | 2021-03-30 19:00 | NUR ---
PT HERE FOR AFIB RVR. PT UP WITH STAND BY ASSIST TO CHAIR, SHOWER, AND TO AMBUALTE IN DSOUZA, FWW USED FOR SAFETY. PT TOLERATING REGULAR DIET THIS SHIFT WITH GOOD INTAKE. TELEMETRY MONITORING SHOWS NORMAL SINUS RHYTHEM THIS SHIFT WITH OCCATIONAL PVC'S. PT REMAINS ON 2L O2 BY NC THROUGHT THE DAY TO MAINTAIN OXYGEN SATURATIONS IN THE LOW 90'S. PRN PAIN MEDICATION GIVEN FOR LEG AND FEET PAIN. PT VOIDING QUANTITY SUFFICIENT, ALTHOUGH SIGNIFICANTLY LESS THAT YESTERDAY. EDEMA TO BLE IMPROVING. PTS DOG AND SIGNIFICANT OTHER HERE TO VISIT THIS SHIFT. PT USES CALL LIGHT APPROPRIATLY AND MAKES NEEDS KNOWN.
--- NOTE | 2021-03-30 19:39 | NUR ---
REPORT RECEIVED FROM JEYSON ANGULO. PATIENT RESTING QUIETLY IN BED AT THIS TIME. PATIENT DENIES ANY CURRENT CARE NEEDS. PATIENT'S CALL LIGHT IS IN REACH.
--- NOTE | 2021-03-30 21:00 | NUR ---
PATIENT SAYS SHE DOES NOT NEED TO VOID AT THIS TIME AND WILL CALL WHEN SHE NEEDS TO. PM ASSESSMENT IS COMPLETE AND PATIENT'S PAIN IS AT HER TOLERABLE LEVEL OF 3/10 FROM ABD DOWN BOTH LEGS. PM MEDS GIVEN ALONG WITH MELATONIN FOR SLEPP. PATIENT HAS NO NEEDS AT THIS TIME, LIGHTS TURNED DOWN AT PATIENT'S REQUEST, AND CALL LIGHT IS IN REACH.
--- NOTE | 2021-03-30 21:05 | NUR ---
PATIENT RESTING QUIETLY IN BED WATCHING TV. PATIENT SAYS SHE IS HAVING A LITTLE PAIN 3/10 FROM HER ABD TO HER TOES, BUT SHE SAYS SHE IS "COMFORTABLE" AT THIS TIME. INFORMED PATIENT'S SBP IN THE 90'S AND NO NEW ORDERS WERE GIVEN AT THIS TIME, JUST TO MONITOR PATIENT. PATIENT WILL CALL WHEN SHE NEEDS TO VOID. HAD EVENING PRAYER WITH PATIENT AND SHE IS GOING TO TRY TO GET SOME SLEEP. CALL LIGHT IS IN REACH AND PATIENT HAS TAKEN HER EVENING MEDS.
--- NOTE | 2021-03-30 22:00 | NUR ---
PATIENT RESTING QUIETLY IN SEMI-FOWLERS POSITION, RESPIRATIONS ARE REGULAR AND EVEN, EYES ARE CLOSED, AND CALL LIGHT IS IN REACH.
--- NOTE | 2021-03-30 23:59 | NUR ---
PATIENT GIVEN 1 PO NORCO FOR ABD,LEG, AND FEET PAIN 5/10. 1PSBA WITH FWW UP TO THE BATHROOM AND BACK TO BED. CALL LIGHT IS IN REACH.
--- NOTE | 2021-03-31 02:19 | NUR ---
PATIENT RESTING QUIETLY TURNED TO HER LEFT SIDE, EYES ARE CLOSED, RESPIRATIONS ARE REGULAR AND EVEN, AND CALL LIGHT IS N REACH.
--- NOTE | 2021-03-31 03:22 | NUR ---
PATIENT RESTING QUIETLY IN BED. RESPIRATIONS ARE REGULAR AND EVEN, EYES ARE CLOSED, AND PATIENT IN LOW FOWLERS POSITION. NO CARE NEEDS NOTED AT THIS TIME.
--- NOTE | 2021-03-31 05:30 | NUR ---
PATIENT RESTING QUIETLY IN LOW FOWLERS POSITION, RESPIRATIONS ARE REGULAR AND EVEN, EYES ARE CLOSED, AND CALL LIGHT IS IN REACH.
--- NOTE | 2021-03-31 07:32 | NUR ---
PATIENT RESTING QUIETLY IN HER BEDSIDE ARMCHAIR WATCHING TV AND HAS NO CURRENT CARE NEEDS. SHIFT REPORT GIVEN TO JEYSON MATIAS.
--- NOTE | 2021-03-31 07:47 | NUR ---
this rn received report from jose hanson. pt up to chair and appears to be resting.
--- NOTE | 2021-03-31 08:45 | NUR ---
THIS RN IN PTS ROOM TO GIVE PT HER MORNING MEDS. PT APPEARS TO BE DOING WELL. PT DOES REPORT MILD SHORTNESS OF BREATH WHEN SHE GETS UP TO THE RESTROOM. PT DOES DESAT TO HIGH 80'S WHEN UP AND MOVING. WHEN THIS RN FLUSHED PTS IV LEAKING WAS NOTED. THIS RN WILL DISCUSS WITH MD ABOUT NEEDING TO A NEW IV
--- NOTE | 2021-03-31 10:00 | NUR ---
THIS RN IN TO RESTART PTS IV TO ENSURE THAT PT GETS THE 2GM OF MAG IN PRIOR TO POTENTIAL DISCHSARGE TODAY. PT STATES THAT SHE IS DOING WELL OTHERWISE AND IS AGREEABLE TO A NEW IV
== END 2021-03-31 13:20 | disposition home or self-care (01) | DRG 308 ==
LOC: ED 10:14 → CCU 14:07 → MS 03-29 14:30
PROVIDERS: ADMIT Student in an Organized Health Care Education/Training Program; ATTEND Student in an Organized Health Care Education/Training Program
DX: I48.0 Paroxysmal atrial fibrillation (principal); I50.33 Acute on chronic diastolic (congestive) heart failure; Z20.822 Contact with and (suspected) exposure to COVID-19; G25.81 Restless legs syndrome; G89.29 Other chronic pain; Z85.43 Personal history of malignant neoplasm of ovary; F39 Unspecified mood [affective] disorder; Z85.3 Personal history of malignant neoplasm of breast; Z85.118 Personal history of other malignant neoplasm of bronchus and lung; J43.9 Emphysema, unspecified; Z92.21 Personal history of antineoplastic chemotherapy; Z92.3 Personal history of irradiation; Z79.899 Other long term (current) drug therapy; Z87.891 Personal history of nicotine dependence; Z90.710 Acquired absence of both cervix and uterus; Z90.13 Acquired absence of bilateral breasts and nipples
CPT/HCPCS: 71045; 80048; 80053; 83735; 83880; 84484; 85025; 87070; 87205; 90694; 93005; 93010; 93306; 94640; 94760; 94761; 96374; 96375; 97110; 97116; 97162; 97165; 97530; 97535; 99285-25; C9803; J1650; J1940; J3475; U0003